=== PATIENT | female | born 1940 | race Caucasian/White ===

== ENCOUNTER → 2020-10-23 12:15 | Outpatient (CLI) | payer MEDICARE, BC, SELFPAY ==
[2020-10-12 10:07] VITALS: BMI 27.2
--- NOTE | 2020-10-23 12:19 | MRI_ITS ---
STUDY: MRI CERVICAL SPINE WITHOUT CONTRAST REASON FOR EXAM: Female, 80 years old. Disk Bulge TECHNIQUE: Standardized fat and water weighted pulse sequences were obtained in the sagittal and axial planes. COMPARISON: None FINDINGS: Normal foramen magnum and brainstem-cervical cord junction. Normal craniovertebral junction. Normal anterior atlantoaxial articulation. Normal odontoid process. Normal cervical lordosis. Normal vertebral bodies and posterior osseous elements. C2-3: Normal endplates. Normal disc height, signal and morphology. Normal central canal and intervertebral neural foramina. C3-4: Mild broad disc osteophyte complex produces mild spinal stenosis and mild bilateral neural foraminal stenosis. C4-5: Normal endplates. Normal disc height, signal and morphology. Normal central canal and intervertebral neural foramina. C5-6: Mild broad disc osteophyte complex and bilateral uncovertebral hypertrophy produces mild spinal stenosis and mild bilateral neural foraminal stenosis. C6-7: Mild bilobed disc osteophyte complex and bilateral uncovertebral hypertrophy produces mild spinal stenosis and mild bilateral neural foraminal stenosis. C7-T1: Normal endplates. Normal disc height, signal and morphology. Normal central canal and intervertebral neural foramina. Normal cervical cord. Normal visualized soft tissue structures. MRI/Spine Cervical (Routine) IMPRESSION: Multilevel degenerative changes, as described above. Electronically Signed: Cecil Cole MD at 15:19 EDT Tel , Service support ,
--- NOTE | 2020-10-23 12:19 | MRI_ITS ---
STUDY: MRI BRAIN WITHOUT CONTRAST REASON FOR EXAM: Female, 80 years old. Cerebellar Ataxia -- Non-contrast only d/t 51 GFR per TECHNIQUE: Standardized multiplanar fat and water weighted pulse sequences were obtained. COMPARISON: None. FINDINGS: Normal size of the ventricles and extra-axial spaces for the patient''s age. Normal white matter tracts of the supratentorial brain. There is no evidence for recent intracranial ischemia or other cause of cytotoxic edema on diffusion weighted imaging (DWI). Normal T2* images of the brain without demonstrated susceptibility artifact. There is no demonstrated hemosiderin stain. Normal bilateral basal ganglia. Normal thalami. There is no extra-axial fluid accumulation. Normal flow voids within the major intracranial circulation suggesting patency by spin echo criteria. Normal sella turcica, pituitary gland, infundibular stalk, optic chiasm and hypothalamus. Normal tectal plate and pineal gland. Normal midbrain, phoenix and medulla. Normal cerebellum. Normal basal cisterns. Normal bilateral temporal bones. Normal bilateral internal auditory canals. There are bilateral ocular lens implants with otherwise normal intraorbital contents. Normal visualized paranasal sinuses. Normal calvarium and skull base. Normal visualized soft tissue structures. Normal visualized upper cervical spine. MRI/Brain without Contrast IMPRESSION: Normal unenhanced MRI of the brain. Electronically Signed: Cecil Cole MD at 15:16 EDT Tel , Service support ,
[2020-10-24 11:55] LABS: CREATININE FINGERSTICK 1.1 mg/dL (0.55-1.02)
== END ==
PROVIDERS: PCP Family Medicine; Referring Provider Psychiatry & Neurology Neurology; Visit Provider Psychiatry & Neurology Neurology
DX: M51.26 Other intervertebral disc displacement, lumbar region (principal)
CPT/HCPCS: 70551; 72141

== ENCOUNTER → 2021-02-15 11:06 | Outpatient (CLI) | payer MEDICARE, BC, SELFPAY ==
[2020-10-12 10:07] VITALS: BMI 27.2
[2021-02-15 12:41] LABS: Vitamin D,25 Hydroxy 37.1 ng/mL
== END ==
PROVIDERS: PCP Family Medicine; Referring Provider Family Medicine; Visit Provider Family Medicine
DX: E55.9 Vitamin D deficiency, unspecified (principal)
CPT/HCPCS: 36415; 82306

== ENCOUNTER → 2021-03-17 15:17 | Outpatient (CLI) | payer MEDICARE, BC, SELFPAY ==
[2020-10-12 10:07] VITALS: BMI 27.2
--- NOTE | 2021-03-17 15:19 | BI_ITS ---
MAMMOGRAPHY - BILATERAL SCREENING REASON FOR EXAM: Female, 80 years old. Routine annual screening examination. PERTINENT HISTORY: Non-contributory. TECHNIQUE: Digital bilateral breast sarah (3D mammographic acquisition) in the CC and MLO projections. 2-D mediolateral oblique (MLO) and craniocaudad (CC) views of both breasts were obtained. CAD: Full Field Digital Mammography with Computer Added Detection was performed. COMPARISON: Comparison is made with prior examination of 09/06/2019. FINDINGS: Breast Composition: The breasts are almost entirely fatty. There are no dominant masses or suspicious calcifications. There is a 5.4 mm well-defined nodule in the axillary region of the left breast suggestive of a small lymph node. This is unchanged. No other significant abnormalities are identified. There has been no significant change since the prior study. BI/SCRN MAMM (CAD)W/SARAH BILAT IMPRESSION: Stable bilateral screening mammogram. Yearly follow-up mammogram recommended. (A) ASSESSMENT CATEGORY: BIRADS Category 2: Benign. A letter regarding these results will be sent to the patient by the facility within 30 days. Approximately 10% of breast cancers are not detected by mammography. A normal mammogram should not delay biopsy of a clinically suspicious abnormality. [id number] Electronically Signed: Tristin Hardwick MD at 15:29 EDT , Service support ,
== END ==
PROVIDERS: PCP Family Medicine; Referring Provider Family Medicine; Visit Provider Family Medicine
DX: Z12.31 Encounter for screening mammogram for malignant neoplasm of breast (principal)
CPT/HCPCS: 77063; 77067

== ENCOUNTER → 2021-06-18 10:58 | Outpatient (CLI) | payer MEDICARE, BC, SELFPAY ==
[2021-06-18 12:47] LABS: CPK Total, Creatine Kinase 41 U/L (26-192); CRP < 2.90 mg/L (0.0-3.0)
== END ==
PROVIDERS: PCP Family Medicine; Referring Provider Family Medicine; Visit Provider Family Medicine
DX: E78.00 Pure hypercholesterolemia, unspecified (principal); G11.9 Hereditary ataxia, unspecified; Z78.9 Other specified health status
CPT/HCPCS: 36415; 82550; 86140

== ENCOUNTER 2021-08-20 12:05 | Outpatient (CLI) | payer MEDICARE, BC, SELFPAY ==
--- NOTE | 2021-08-20 12:08 | RAD_ITS ---
STUDY: X-RAY - PELVIS AND RIGHT HIP REASON FOR EXAM: Female, 81 years old. GLUTEAL PAIN TECHNIQUE: 3 views of the pelvis and hip. COMPARISON: None. FINDINGS: There is a non-specific bowel gas pattern. Normal visualized soft tissue structures. Normal bilateral iliac wings, sacroiliac joints and visualized sacrum. Normal bilateral superior and inferior pubic rami. Normal pubic symphysis. Normal bilateral ischial tuberosities. There is evidence of prior hardware removal of the proximal right femur with extension to the neck of the femur. Findings suggestive of a healed right subcapital fracture. Sclerosis of the femoral head. Avascular necrosis should be ruled out. Normal acetabulum. There is moderate articular joint space narrowing of the hip. Disc space narrowing and degeneration in the lower lumbar spine. RAD/HIP, UNI W/ Pelvis 2-3 Views IMPRESSION: Evidence of prior ORIF of a right subcapital fracture. 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 Electronically Signed: Tristin Hardwick MD at 12:34 EST ,
== END 2021-08-20 23:59 | disposition home or self-care (01) ==
LOC: MTRAD 12:06
PROVIDERS: PCP Family Medicine; Referring Provider Family Medicine; Visit Provider Family Medicine
DX: M79.18 Myalgia, other site (principal)
CPT/HCPCS: 73502

== ENCOUNTER 2021-09-03 13:04 | Outpatient (CLI) | payer MEDICARE, BC, SELFPAY ==
--- NOTE | 2021-09-03 13:07 | CT_ITS ---
CT of the right hip without contrast INDICATION: Fall, hip pain. COMPARISON: X-ray 08/20/2021 TECHNIQUE: Multiple thin section axial CT images the right hip joint were obtained without the administration of intravenous contrast and filmed in soft tissue and bone windows. Furthermore, multiple sagittal and coronal reconstructions were performed. Dose limiting techniques were utilized. FINDINGS: No abnormal soft tissue mass, lymphadenopathy, fluid collection. No acute fracture or dislocation. There is a healed fracture of the subcapital femoral neck with a hyperdense of prior percutaneous fixation with tracts from 3 screws. There is inferior displacement of the femoral head on the neck consistent with some inferior slippage of the femoral head. There is moderate joint space narrowing, subchondral sclerosis, and subchondral cyst formation of the superior femoral head and the roof the acetabulum hip joint consistent with moderate arthrosis. This produces concavity the superior surface of the femoral head and avascular necrosis is felt to be less likely. IMPRESSION: Healed inferiorly displaced fracture of the subcapital femoral neck with removal of percutaneous fixation screws and moderate hip arthrosis. Electronically Signed: Cecil Cole MD at 8:45 EST , CT/Extremity Lower without Contra
== END 2021-09-03 23:59 | disposition home or self-care (01) ==
LOC: CT 13:05
PROVIDERS: PCP Family Medicine; Referring Provider Family Medicine; Visit Provider Family Medicine
DX: M87.051 Idiopathic aseptic necrosis of right femur (principal)
CPT/HCPCS: 73700

== ENCOUNTER 2022-02-17 06:36 | Day surgery (SDC) | payer MEDICARE, BC, SELFPAY ==
[2022-02-17] VITALS (7 sets, daily range): BP systolic 113–151; BP diastolic 67–73; PULSE 60–65; RESP 16–18; TEMP 36.2–36.6; O2SAT 96–98; BMI 28.8
[2022-02-17] MEDS: Lactated Ringers 1,000 ML 15 ML IV (06:50)
--- NOTE | 2022-02-17 07:05 | PCM.HP.BLA ---
History and Physical Date of Admission: 02/17/22 TERRENCE YANG, is an 81 F who presents to the office today for increasing regurgitation of food after eating.? She has cerebellar ataxia.? She is referred by her primary care physician who suspects esophageal dysmotility.? The patient states she does not have difficulty with swallowing, rather the problem is that she is having regurgitation of food, less often regurgitation of acid.? She takes domperidone 10 mg at suppertime to help with reflux, she does find it helpful; she takes a second dose in the evening if needed.? She reports she has gone through speech therapy.? She has not had a swallowing study or EGD.? Food and pills are not getting stuck.? She will have coughing along with the regurgitation.? No sore throat, chest pain or abdominal pain.? No nausea or vomiting.? She reports the bowels are fine, she denies any issues with diarrhea or constipation.? No melena or hematochezia.? Weight is stable.? Appetite is fine.? No early satiety. Cerebellar ataxia began in 1989.? She is able to self propel in a wheelchair.? She resides at [facility]. ROS Const Constitutional: No fatigue ENT ENT: Positive for difficulty swallowing Gastro GI: Positive for abdominal pain and difficulty swallowing; No belching, bloating, change in bowel habits, change in stool character, coffee ground emesis, constipation, cramping, diarrhea, heartburn, feeling full early, excessive flatus, incontinent of stools, Vomiting blood/hematemesis, Blood in stool, loose stools, Black,tarry stools, nausea/dyspepsia, pain with swallowing, vomiting or other Musc Musculoskeletal: Positive for abnormal gait, limited range of motion, muscle weakness and decreased muscle mass; No joint pain Skin Skin: No yellowing of the eye or itchy eyes Neuro Neurology: Positive for abnormal gait Psych Psychiatric: No anxiety and No depression Endo Endocrine: No fatigue Aller/Imm Allergy/Immunologic: No itchy eyes Kirk/Lymp Hematologic/Lymphatic: No easy bleeding or easy bruising Exam Const General: cooperative, comfortable and no acute distress Orientation: alert, awake and oriented x3 Other: In wheelchair, able to self propel Resp Effort & Inspection: normal respiratory effort GI Inspection: normal to inspection Palpation: tender Quality Reporting Tobacco Screening ([facility] 138) Smoking Status: Never smoker Assessment and Plan Assessment and Plan (1) Regurgitation of food: ?Status:?Acute ?Plan: 81-year-old female with regurgitation of food along with coughing in the setting of cerebellar ataxia.? Case discussed with Dr. Galvan.? We will order a video swallowing exam that will be performed by speech therapy.? She will be scheduled for EGD to evaluate for stricture or other easily treatable cause of her regurgitation.? We can consider esophageal manometry later if needed.? We will have patient follow-up with Dr. Galvan per patient preference 2 weeks after EGD to discuss results and possible treatment options. (2) Cerebellar ataxia: ?Status:?Acute ? ? ? Orders: Referrals Speech Therapy ? G11.9 - Hereditary ataxia, unspecified, R11.10 - Vomiting, unspecified ? I have re-examined the patient. There are no clinical changes since date of exam.
--- NOTE | 2022-02-17 07:45 | EGD_PTH ---
PATIENT: TERRENCE YANG LOC: EN U#:[id number] AGE/SX: 81/F ROOM: RE02/17/[address]: Dr. Kobe Galvan DO : 1940 BED: DIS: 02/17/2022 SPEC #: [id number] RECD: 02/17/22 10:26 STATUS: FABBY CAIO #: [id number] CORNEL: 02/17/22 07:[address]: Kobe Galvan DEPT: SURGICAL PATHOLOGY RECD BY: Cara Herrera ENTERED: 02/17/22 12:10 SP TYPE: EGD BIOPSY SARINA DR: Dr. Terry Laguna MD Tissues: A - Esophagus, NOS B - Esophagus, NOS Procedures: Surgery Specimen Level IV HEADER OPERATION: EGD ([facility]), with biopsies PRE-OP DIAGNOSIS: Regurgitation of food TISSUE SUBMITTED: A. Distal esophagus biopsy, B. Random esophagus biopsy MICROSCOPIC DIAGNOSIS A. Distal esophagus biopsy: Fragments of gastroesophageal mucosa with chronic inflammation. Intestinal metaplasia (goblet cell metaplasia) not identified. See comment. B. Random esophagus biopsy: Fragments of gastroesophageal mucosa with mild chronic inflammation. Intestinal metaplasia (goblet cell metaplasia) not identified. See comment COMMENT A & B. Alcian blue/PAS stain with matched control supports the above diagnosis. B. The specimen predominantly consists of squamous mucosa. MICROSCOPIC DESCRIPTION Slides are reviewed. GROSS DESCRIPTION A. Received is one container labeled with the patient name and designated distal esophagus. The specimen consists of multiple irregular fragments of light eli soft tissue that in aggregate measure 1.0 x 0.3 x 0.1 cm. The specimen is totally submitted in one cassette. B. Received is one container labeled with the patient name and designated random esophagus. The specimen consists of two irregular fragments of light eli soft tissue that in aggregate measure 0.4 x 0.2 x 0.1 cm. The specimen is totally submitted in one cassette. /SJ:concepción 02/17/22 TC:3 CPT:60614 x2, 41353 x2
--- NOTE | 2022-02-17 08:01 | OP.EGD_ITS ---
Patient Name: Juliane Mahan Procedure Date: 02/17/2022 7:37 AM Date of : 1940 Age: 81 Procedure: Upper GI endoscopy Indications: Dyspepsia, Indigestion, Suspected esophageal reflux Providers: Kobe Galvan DO Medicines: Monitored Anesthesia Care Patient Profile: This is an 81 year old female. Refer to note in patient chart for documentation of history and physical. Patient has symptoms of chronic regurgitation. Complications: No immediate complications. Procedure: Pre-Anesthesia Assessment: - Prior to the procedure, a History and Physical was performed, and patient medications and allergies were reviewed. The patient is competent. The risks and benefits of the procedure and the sedation options and risks were discussed with the patient. All questions were answered and informed consent was obtained. Patient identification and proposed procedure were verified by the physician in the pre-procedure area. Mental Status Examination: alert and oriented. Airway Examination: normal oropharyngeal airway and neck mobility. Respiratory Examination: clear to auscultation. CV Examination: normal. Prophylactic Antibiotics: The patient does not require prophylactic antibiotics. Prior Anticoagulants: The patient has taken no previous anticoagulant or antiplatelet agents. ASA Grade Assessment: II - A patient with mild systemic disease. After reviewing the risks and benefits, the patient was deemed in satisfactory condition to undergo the procedure. The anesthesia plan was to use moderate sedation / analgesia (conscious sedation). Immediately prior to administration of medications, the patient was re-assessed for adequacy to receive sedatives. The heart rate, respiratory rate, oxygen saturations, blood pressure, adequacy of pulmonary ventilation, and response to care were monitored throughout the procedure. The physical status of the patient was re-assessed after the procedure. After obtaining informed consent, the endoscope was passed under direct vision. Throughout the procedure, the patient's blood pressure, pulse, and oxygen saturations were monitored continuously. The gastroscope was introduced through the mouth, and advanced to the third part of duodenum. The upper GI endoscopy was accomplished without difficulty. The patient tolerated the procedure well. Scope In: 7:48:08 AM Scope Out: 7:52:56 AM Total Procedure Duration Time 0 hours 4 minutes 48 seconds Findings: A moderate Schatzki ring was found in the lower third of the esophagus. A guidewire was placed and the scope was withdrawn. Dilation was performed with a Savary dilator with no resistance at 45 Fr. The dilation site was examined and showed moderate improvement in luminal narrowing. Biopsies were obtained from the proximal and distal esophagus with cold forceps for histology of suspected eosinophilic esophagitis. The Z-line was irregular and was found 40 cm from the incisors. Biopsies were taken with a cold forceps for histology. Verification of patient identification for the specimen was done. Estimated blood loss was minimal. A medium-sized hiatal hernia was present. The second portion of the duodenum was normal. Impression: - Moderate Schatzki ring. Dilated. Biopsied. - Z-line irregular, 40 cm from the incisors. Biopsied. - Medium-sized hiatal hernia. - Normal second portion of the duodenum. Recommendation: - Discharge patient to home. - Resume previous diet. - Continue present medications. - Await pathology results. Procedure Code(s): --- Professional --- 00192, Esophagogastroduodenoscopy, flexible, transoral; with insertion of guide wire followed by passage of dilator(s) through esophagus over guide wire 17333, 59,51, Esophagogastroduodenoscopy, flexible, transoral; with biopsy, single or multiple CPT copyright 2017 [employer]. All rights reserved. The codes documented in this report are preliminary and upon tree surgeon helper review may be revised to meet current compliance requirements. Kobe Galvan DO 02/17/2022 8:00:25 AM This report has been signed electronically. Number of Addenda: 1 Note Initiated On: 02/17/2022 7:37 AM Addendum Number: 1 Addendum Date: 04/07/2022 6:13:47 AM MAC was used as sedation for this procedure. Kobe Galvan DO 04/07/2022 6:13:50 AM This report has been signed electronically.
--- NOTE | 2022-02-17 08:02 | OP.CCLET_ITS ---
04/07/2022 Terry aLguna [address] [place] [address] Re : Upper GI endoscopy procedure for Juliane Mahan Dear Dr. Laguna This procedure was performed on January. My impressions and recommendations are as follows: Impressions : - Moderate Schatzki ring. Dilated. Biopsied. - Z-line irregular, 40 cm from the incisors. Biopsied. - Medium-sized hiatal hernia. - Normal second portion of the duodenum. Recommendations : - Discharge patient to home. - Resume previous diet. - Continue present medications. - Await pathology results. My findings are described in the full procedure note, which is enclosed. If I can be of further assistance, please feel free to contact me at . Sincerely, Kobe Galvan, 02/17/2022 8:00:25 AM This report has been signed electronically.
== END 2022-02-17 08:51 | disposition home or self-care (01) ==
LOC: EN 06:38 → AC 06:38
PROVIDERS: PCP Family Medicine; Referring Provider Family Medicine; Visit Provider Internal Medicine Gastroenterology
PROC: 0DJ08ZZ Inspection of Upper Intestinal Tract, Via Natural or Artificial Opening Endoscopic (ICD-10-PCS; CPT 43235; principal; 2022-02-17 07:40)
DX: K44.9 Diaphragmatic hernia without obstruction or gangrene (principal); G11.9 Hereditary ataxia, unspecified; K30 Functional dyspepsia; K22.2 Esophageal obstruction; Z79.82 Long term (current) use of aspirin; Z79.899 Other long term (current) drug therapy; R11.10 Vomiting, unspecified; J45.909 Unspecified asthma, uncomplicated; M47.812 Spondylosis without myelopathy or radiculopathy, cervical region; K21.9 Gastro-esophageal reflux disease without esophagitis; E78.5 Hyperlipidemia, unspecified; I10 Essential (primary) hypertension; E55.9 Vitamin D deficiency, unspecified
CPT/HCPCS: 43239; 43248; 88305; J7120; J2405

== ENCOUNTER → 2022-03-16 | Outpatient (CLI) | payer MEDICARE, BC, SELFPAY ==
--- NOTE | 2022-03-16 09:47 | RAD_ITS ---
STUDY: X-RAY - ESOPHAGUS (BARIUM SWALLOW) WITH FLUOROSCOPY REASON FOR EXAM: Female, 81 years old. Regurgitation TECHNIQUE: 24 view(s) of the esophagus were obtained following swallowing of barium. FLUOROSCOPY TIME (if supplied): (48 seconds) minutes/seconds COMPARISON: None. FINDINGS: There is no demonstrated esophageal foreign body. There is no demonstrated stricture or mucosal abnormality. Normal gastroesophageal junction, without a demonstrated hiatal hernia. The patient ingested a 12 mm tablet of barium without any difficulty. There is atherosclerotic calcification of the aortic arch with tortuosity of the descending aorta. Normal visualized pulmonary parenchyma. There are diffuse degenerative changes of the visualized thoracic spine. RAD/Esophagus Single Contrast IMPRESSION: Normal plain film x-ray examination (barium swallow) of the esophagus. Electronically Signed: Tristin Hardwick MD at 10:43 EDT ,
== END | disposition home or self-care (01) ==
LOC: RAD 09:22
PROVIDERS: PCP Family Medicine; Referring Provider Internal Medicine Gastroenterology; Visit Provider Internal Medicine Gastroenterology
DX: R11.10 Vomiting, unspecified (principal)
CPT/HCPCS: 74220

== ENCOUNTER → 2022-04-20 | Outpatient (CLI) | payer MEDICARE, BC, SELFPAY ==
--- NOTE | 2022-04-20 09:47 | BI_ITS ---
MAMMOGRAPHY - BILATERAL SCREENING 3-D TOMOSYNTHESIS REASON FOR EXAM: Female, 81 years old. Routine screening PERTINENT HISTORY: No significant family history. TECHNIQUE: 2-D mammograms and 3-D Tomosynthesis of the breast (s) were performed. CAD was performed. COMPARISON: 03/17/2021 FINDINGS: The breast composition is almost entirely fat. Scattered benign calcifications are seen. No dense spiculated masses or suspicious microcalcifications are identified. No architectural distortion is identified. There is no skin thickening or retraction. There has been no significant change since the prior study. BI/SCRN MAMM (CAD)W/SARAH BILAT IMPRESSION: No mammographic signs of malignancy. Routine yearly mammograms recommended. ASSESSMENT CATEGORY: BIRADS Category 1: Negative. A letter regarding these results will be sent to the patient by the facility within 30 days. FOLLOW UP RECOMMENDATION: Yearly follow up mammogram recommended. (A) Approximately 10% of breast cancers are not detected by mammography. A normal mammogram should not delay biopsy of a clinically suspicious abnormality. Electronically Signed: Roel Philippe MD at 10:31 EDT ,
== END | disposition home or self-care (01) ==
LOC: OPBI 09:46
PROVIDERS: PCP Family Medicine; Visit Provider Family Medicine
DX: Z12.31 Encounter for screening mammogram for malignant neoplasm of breast (principal)
CPT/HCPCS: 77063; 77067

== ENCOUNTER 2022-11-02 08:00 | Day surgery (SDC) | payer MEDICARE, BC, SELFPAY ==
[2022-11-02] VITALS (7 sets, daily range): BP systolic 90–148; BP diastolic 41–75; PULSE 67–71; RESP 14–18; TEMP 36.3–36.6; O2SAT 96–98; BMI 28.2
[2022-11-02] MEDS: Lactated Ringers 1,000 ML 15 ML IV (08:32)
--- NOTE | 2022-11-02 09:03 | HP.PCM_ITS ---
History and Physical Date of Admission: 11/02/22 TERRENCE YANG, is a 82 F who presents to the office today for Follow up. PMH cerebellar ataxia, onset 1989. Colonoscopy 12.22.18 Dr. Carpenter noting 8mm sessile polyp; addition three polyps removed; diverticulosis; internal hemorrhoids. Two polyps were TA. *BGI established 7..22 with referral from PCP for postprandial regurgitation of food. No swallow studies or EGD and no difficulty of dysphagia. Reflux managed with domperidone 10mg QD. EGD 02.17.22?moderate Schatzki ring, Savary dilator 45F; Irregular Zline 40cm from incisors with inflammation, without metaplasia; medium hiatal hernia. OV 9.. with continued regurgitation of food, particularly with increased abdominal pressure. No dysphagia. Barium Swallow 03.16.22?without abnormality. OV 08.24.22 continued to have regurgitation of food with increased abdominal pressure, feels the food is not digested when it does come up. ROS Const Constitutional: No fatigue ENT ENT: Positive for difficulty swallowing Gastro GI: Positive for abdominal pain and difficulty swallowing; No belching, bloating, change in bowel habits, change in stool character, coffee ground emesis, constipation, cramping, diarrhea, heartburn, feeling full early, excessive flatus, incontinent of stools, Vomiting blood/hematemesis, Blood in stool, loose stools, Black,tarry stools, nausea/dyspepsia, pain with swallowing, vomiting or other Musc Musculoskeletal: Positive for abnormal gait, limited range of motion, muscle weakness and decreased muscle mass; No joint pain Skin Skin: No yellowing of the eye or itchy eyes Neuro Neurology: Positive for abnormal gait Psych Psychiatric: No anxiety and No depression Endo Endocrine: No fatigue Aller/Imm Allergy/Immunologic: No itchy eyes Kirk/Lymp Hematologic/Lymphatic: No easy bleeding or easy bruising Exam Const General: cooperative, comfortable and no acute distress Orientation: alert, awake and oriented x3 Other: In wheelchair, able to self propel Resp Effort & Inspection: normal respiratory effort GI Inspection: normal to inspection Palpation: tender Quality Reporting Tobacco Screening ([facility] 138) Smoking Status: Never smoker Assessment and Plan Assessment and Plan (1) Regurgitation of food: ?Status:?Chronic ?Plan: Chronic regurgitation of food secondary to known gastroparesis.? She also has a hiatal hernia.? She is taken domperidone 10 mg p.o. every 6 hours as needed.? I will give her a refill for the medicine. (2) Personal history of colonic polyps: ?Status:?Acute ?Plan: We will set up a surveillance colonoscopy for her.? She was explained alternatives, risk, benefits including outstanding bleeding, infection, sepsis, perforation, need for emergent surgery.? She will have an ASA 3. (3) Gastric reflux: ?Status:?Acute ?Plan: Gastroesophageal reflux disease is made worse secondary to underlying gastroparesis.? There was no signs of José's esophagus on her upper endoscopy which is good.? She does not need PPI therapy on a daily basis.? We will give her H2 receptor antonio. ? ? ? Orders: Orders Gastric Emptying Study Today R11.10 - Vomiting, unspecified ? (4) need for surveillance colonoscopy. She was explained alternatives, risk, benefits include not withstanding bleeding, infection, sepsis, perforation, need for emergent and . She will have a colonoscopy and her ASA will be 3. Coding
--- NOTE | 2022-11-02 09:34 | OP.COLON_ITS ---
Patient Name: Juliane Mahan Procedure Date: 11/02/2022 9:08 AM Date of : 1940 Age: 82 Procedure: Colonoscopy Indications: Screening for colorectal malignant neoplasm Providers: Kobe Galvan DO Referring MD: Kobe Galvan DO Medicines: Monitored Anesthesia Care Patient Profile: This is an 82 year old female. Refer to note in patient chart for documentation of history and physical. Last Colonoscopy: date unknown. Unable to locate last colonoscopy report. Complications: No immediate complications. Procedure: Pre-Anesthesia Assessment: - Prior to the procedure, a History and Physical was performed, and patient medications and allergies were reviewed. The risks and benefits of the procedure and the sedation options and risks were discussed with the patient. All questions were answered and informed consent was obtained. Patient identification and proposed procedure were verified by the physician. Mental Status Examination: normal. Prophylactic Antibiotics: The patient does not require prophylactic antibiotics. Prior Anticoagulants: The patient has taken no previous anticoagulant or antiplatelet agents. ASA Grade Assessment: II - A patient with mild systemic disease. After reviewing the risks and benefits, the patient was deemed in satisfactory condition to undergo the procedure. The anesthesia plan was to use monitored anesthesia care (MAC). Immediately prior to administration of medications, the patient was re-assessed for adequacy to receive sedatives. The heart rate, respiratory rate, oxygen saturations, blood pressure, adequacy of pulmonary ventilation, and response to care were monitored throughout the procedure. The physical status of the patient was re-assessed after the procedure. After I obtained informed consent, the scope was passed under direct vision. Throughout the procedure, the patient's blood pressure, pulse, and oxygen saturations were monitored continuously. The pediatric colonoscope was introduced through the anus and advanced to the cecum, identified by appendiceal orifice and ileocecal valve. The colonoscopy was performed without difficulty. The patient tolerated the procedure well. The quality of the bowel preparation was good. Scope In: 9:19:02 AM Scope Withdrawal Time 0 hours 7 minutes 59 seconds Scope Out: 9:29:53 AM Total Procedure Duration Time 0 hours 10 minutes 51 seconds Findings: The perianal and digital rectal examinations were normal. A few small-mouthed diverticula were found in the recto-sigmoid colon. The exam was otherwise without abnormality on direct and retroflexion views. Impression: - Diverticulosis in the recto-sigmoid colon. - The examination was otherwise normal on direct and retroflexion views. - No specimens collected. Recommendation: - Discharge patient to home. - Resume previous diet. - Continue present medications. - Repeat colonoscopy in 5 years for surveillance. Procedure Code(s): --- Professional --- G0121, Colorectal cancer screening; colonoscopy on individual not meeting criteria for high risk CPT copyright 2017 [employer]. All rights reserved. The codes documented in this report are preliminary and upon accounting consultant review may be revised to meet current compliance requirements. Kobe Galvan DO 11/02/2022 9:33:56 AM This report has been signed electronically. Number of Addenda: 0 Note Initiated On: 11/02/2022 9:08 AM
--- NOTE | 2022-11-02 09:35 | OP.CCLET_ITS ---
11/02/2022 Terry Laguna [address] [place] [address] Re : Colonoscopy procedure for Juliane Mahan Dear Dr. Laguna This procedure was performed on Wednesday, November 02, 2022. My impressions and recommendations are as follows: Impressions : - Diverticulosis in the recto-sigmoid colon. - The examination was otherwise normal on direct and retroflexion views. - No specimens collected. Recommendations : - Discharge patient to home. - Resume previous diet. - Continue present medications. - Repeat colonoscopy in 5 years for surveillance. My findings are described in the full procedure note, which is enclosed. If I can be of further assistance, please feel free to contact me at . Sincerely, Kobe Galvan, 11/02/2022 9:33:56 AM This report has been signed electronically.
== END 2022-11-02 10:20 | disposition home or self-care (01) ==
LOC: EN 08:02 → AC 08:03
PROVIDERS: PCP Family Medicine; Referring Provider Family Medicine; Visit Provider Internal Medicine Gastroenterology
PROC: 0DJD8ZZ Inspection of Lower Intestinal Tract, Via Natural or Artificial Opening Endoscopic (ICD-10-PCS; CPT 45378; principal; 2022-11-02 08:55)
DX: Z12.11 Encounter for screening for malignant neoplasm of colon (principal); K57.30 Diverticulosis of large intestine without perforation or abscess without bleeding; J45.909 Unspecified asthma, uncomplicated; K21.9 Gastro-esophageal reflux disease without esophagitis; K31.84 Gastroparesis; E78.00 Pure hypercholesterolemia, unspecified; I10 Essential (primary) hypertension; Z79.82 Long term (current) use of aspirin; Z79.899 Other long term (current) drug therapy; Z86.010 Personal history of colon polyps
CPT/HCPCS: G0121; J7120; J2405

== ENCOUNTER → 2023-03-14 | Outpatient (CLI) | payer MEDICARE, BC, SELFPAY ==
--- NOTE | 2023-03-14 16:05 | RAD_ITS ---
STUDY: X-RAY - LEFT HAND REASON FOR EXAM: Female, 82 years old. L hand MCP tender/swollen TECHNIQUE: 3 view(s) of the hand. COMPARISON: None. FINDINGS: Normal radiocarpal articulation. Normal distal radioulnar joint. Normal visualized carpal bones. Normal carpal articulations Normal carpometacarpal articulation of the thumb. Normal second through fifth carpometacarpal joints. Normal metacarpi. Normal metacarpophalangeal joint of the thumb. Normal interphalangeal joint of the thumb. Normal proximal and distal phalanges of the thumb. Normal metacarpophalangeal joints of the second through fifth fingers. Normal proximal and distal interphalangeal joints of the second through fifth fingers. Normal phalanges of the second through fifth fingers. The soft tissue structures are unremarkable. RAD/Hand Min 3 Views IMPRESSION: No definite acute or significant abnormality seen. Electronically Signed: Owen Linton MD at 19:59 EDT ,
--- NOTE | 2023-03-14 16:05 | RAD_ITS ---
STUDY: X-RAY - PELVIS AND RIGHT HIP REASON FOR EXAM: Female, 82 years old. anterior R hip pain TECHNIQUE: 3 views of the pelvis and hip. COMPARISON: 08/20/2021. FINDINGS: Stable appearance of postsurgical changes of the proximal right femur. Stable appearance of markedly abnormal femoral head contour and shortening of the right femoral neck related to previous fracture and prominent secondary osteoarthritis. No gross acute abnormality. Normal bilateral iliac wings, sacroiliac joints and visualized sacrum. Normal bilateral superior and inferior pubic rami. Normal pubic symphysis. Normal bilateral ischial tuberosities. RAD/HIP, UNI W/ Pelvis 2-3 Views IMPRESSION: No change or acute abnormality. Postsurgical and degenerative changes of the right hip. Electronically Signed: Owen Linton MD at 19:16 EDT ,
[2023-03-14 17:51] LABS: Erythrocyte Sedimentation Rate 9 mm/hr (0-30)
[2023-03-14 17:55] LABS: Absolute Lymphocyte Count 2.34 X10^3/uL (0.83-4.51); Absolute Neutrophil Count 3.5 X10^3/uL (2.0-7.7); Basophil# 0.06 X10^3/uL; Basophil% 0.9 % (0-1); Eosinophil# 0.24 X10^3/uL; Eosinophils% 3.6 % (0-5); Hematocrit 47.9 % (37-47); Hemoglobin 15.1 g/dL (12.0-15.0); Lymphocyte # 2.34 X10^3/ul (0.83-4.51); Lymphocyte % 34.7 % (19-41); Mean Corp Hgb Conc 31.5 g/dL (32-36); Mean Corpuscular Volume 95.2 fL (81-99); Mean Platelet Vol. 9.9 fl (6.2-12.0); Monocyte# 0.65 X10^3/uL; Monocyte% 9.6 % (0-10); NRBC Flagged by Analyzer 0 % (0-5); Neutrophil # 3.45 X10^3/uL (2.7-7.7); Neutrophil % 51.1 % (47-70); Platelet Count 220 K/mm3 (150-450); RBC Distribution Width CV 13.2 % (11.6-14.6); RBC Distribution Width SD 46.1 fl (35.1-43.9); Red Blood Count 5.03 M/mm3 (4.2-5.4); White Blood Count 6.8 K/mm3 (4.4-11.0)
[2023-03-14 18:43] LABS: CRP < 2.90 mg/L (0.0-3.0); Rheumatoid Factor < 10.0 IU/mL (<15)
[2023-03-16 12:09] LABS: ANTINUCLEAR ANTIBODIES DIRECT Negative (Negative)
== END | disposition home or self-care (01) ==
LOC: MTLAB 16:02
PROVIDERS: PCP Family Medicine; Visit Provider Family Medicine
DX: M19.049 Primary osteoarthritis, unspecified hand (principal); J45.909 Unspecified asthma, uncomplicated
CPT/HCPCS: 36415; 73130; 73502; 85025; 85652; 86038; 86140; 86431

== ENCOUNTER 2023-11-14 11:05 | Day surgery (SDC) | payer MEDICARE, BC, SELFPAY ==
[2023-11-14] VITALS (8 sets, daily range): BP systolic 79–138; BP diastolic 44–75; PULSE 55–63; RESP 12–18; TEMP 35.6–36.5; O2SAT 92–98; BMI 27.9
[2023-11-14] MEDS: Lactated Ringers 1,000 ML 15 ML IV (11:37)
--- NOTE | 2023-11-14 11:59 | HP.PCM_ITS ---
History and Physical Date of Admission: 11/14/23 TERRENCE YANG, is a 83 F who presents to the office today for follow up. PMH cerebellar ataxia, onset 1989. Gastroparesis diagnosed by previous GI who started domperidone which is effective. Colonoscopy 12.22.18 Dr. Carpenter noting 8mm sessile polyp; addition three polyps removed; diverticulosis; internal hemorrhoids. Two polyps were TA. *BGI established 7.12.22 with referral from PCP for postprandial regurgitation of food. No swallow studies or EGD and no difficulty of dysphagia. Reflux managed with domperidone 10mg QD. EGD 02.17.22 moderate Schatzki ring, Savary dilator 45F; Irregular Zline 40cm from incisors with inflammation, without metaplasia; medium hiatal hernia. OV 03.11.22 with continued regurgitation of food, particularly with increased abdominal pressure. No dysphagia. Barium Swallow 03.16.22 without abnormality. OV 08.24. continues to have regurgitation of food with increased abdominal pres sure, feels the food is not digested when it does come up. ? Colonoscopy 11.02.22 Colonoscopy diverticulosis. Remaining exam without pertinent abnormality. OV 11.23.23 feels she is doing well at this time; though she has been having a random nonproductive cough without choking, dysphagia, trigger, not triggered by PO intake. Mentioned to Dr. Laguna who looked in her throat and said it was red and gave her Flonase to add to her cetirizine and Montelukast. OV 04.28. reports she is doing very well from a GI perspective. Continues to have a cough; swallowing is without difficulty. OV 11.02. Pt reports that she is doing well overall, she is still having episodes of coughing while she eats. Pt states that she is having at least one loose bm per day. ROS Const Constitutional: No fatigue, fever(s) or weight change ENT ENT: No difficulty swallowing Gastro GI: No abdominal pain, belching, bloating, change in bowel habits, change in stool character, coffee ground emesis, constipation, cramping, diarrhea, heartburn, difficulty swallowing, feeling full early, excessive flatus, incontinent of stools, Vomiting blood/hematemesis, Blood in stool, loose stools, Black,tarry stools, nausea/dyspepsia, pain with swallowing, vomiting or other Musc Musculoskeletal: No joint pain Skin Skin: No yellowing of the eye or itchy eyes Psych Psychiatric: No anxiety and No depression Endo Endocrine: No fatigue or weight change Aller/Imm Allergy/Immunologic: No itchy eyes Kirk/Lymp Hematologic/Lymphatic: No easy bleeding or easy bruising Exam Const General: cooperative, comfortable and no acute distress Orientation: alert, awake and oriented x3 Other: In wheelchair, able to self propel Resp Effort & Inspection: normal respiratory effort GI Inspection: normal to inspection Palpation: tender Assessment and Plan Assessment and Plan (1) Dyskinesia of esophagus: Status: Chronic (2) Cerebellar ataxia: Status: Chronic (3) Regurgitation of food: Status: Inactive Plan: Chronic regurgitation of food secondary to known gastroparesis. She also has a hiatal hernia. She is taken domperidone 10 mg p.o. every 6 hours as needed. I will give her a refill for the medicine. We will set her up for an EGD with Botox for her gastroparesis. Botox to the pyloric sphincter works very well for pyloric dysfunction and refractory gastroparesis. If this works then she can go off of the domperidone. (4) Cough: Status: Chronic (5) Personal history of colonic polyps: Status: Inactive Plan: She underwent colonoscopy. She was discovered to have diverticular disease. There was no signs of ischemia seen on her colonoscopy. She did have 2 adenomatous polyps removed. She denies heavy bleeding, abdominal pain, diarrhea or any problems after the procedure. I think this will be her last colonoscopy because she would be 83. We will possibly discuss in the next 3 to 5 years whether she will need a colonoscopy for screening purposes. (6) Gastric reflux: Status: Inactive Plan: Gastroesophageal reflux disease is made worse secondary to underlying jacquelyn roparesis. There was no signs of José's esophagus on her upper endoscopy which is good. She does not need PPI therapy on a daily basis. We will give her H2 receptor antonio. I have examined the patient and the H&P has been reviewed. There are no clinical changes since date of exam.
[2023-11-14] MEDS: 0.9% Normal Saline (Pres. free 10 ML Vial (12:31)
[2023-11-14] MEDS: Botulinum Toxin A 100 Units Vial IJ (12:31)
[2023-11-14] MEDS: 0.9% Saline Lock 10 ML Syringe IV (12:35)
--- NOTE | 2023-11-14 12:50 | OP.CCLET_ITS ---
11/14/2023 eTrry Laguna [address] [place] [address] Re : Upper GI endoscopy procedure for Juliane Mahan Dear Dr. Laguna This procedure was performed on Tuesday, November 14, 2023. My impressions and recommendations are as follows: Impressions : - Abnormal esophageal motility, consistent with presbyesophagus. Injected with botulinum toxin. - No gross lesions in the entire stomach. - No gross lesions in the duodenal bulb. - No specimens collected. Recommendations : - Discharge patient to home. - Resume previous diet. - Continue present medications. My findings are described in the full procedure note, which is enclosed. If I can be of further assistance, please feel free to contact me at . Sincerely, Kobe Galvan, 11/14/2023 12:49:41 PM This report has been signed electronically.
--- NOTE | 2023-11-14 12:50 | OP.EGD_ITS ---
Patient Name: Juliane Mahan Procedure Date: 11/14/2023 12:13 PM Date of : 1940 Age: 83 Procedure: Upper GI endoscopy Indications: Dysphagia Providers: Kobe Galvan DO Medicines: Monitored Anesthesia Care Patient Profile: This is an 83 year old female. Refer to note in patient chart for documentation of history and physical. Patient has symptoms of chronic dysphagia and dysphagia with both liquids and solids. Complications: No immediate complications. Procedure: Pre-Anesthesia Assessment: - Prior to the procedure, a History and Physical was performed, and patient medications and allergies were reviewed. The risks and benefits of the procedure and the sedation options and risks were discussed with the patient. All questions were answered and informed consent was obtained. Patient identification and proposed procedure were verified by the physician in the pre-procedure area. Mental Status Examination: alert and oriented. Airway Examination: normal oropharyngeal airway and neck mobility. Respiratory Examination: clear to auscultation. CV Examination: normal. Prophylactic Antibiotics: The patient does not require prophylactic antibiotics. Prior Anticoagulants: The patient has taken no anticoagulant or antiplatelet agents. ASA Grade Assessment: III - A patient with severe systemic disease. After reviewing the risks and benefits, the patient was deemed in satisfactory condition to undergo the procedure. The anesthesia plan was to use monitored anesthesia care (MAC). Immediately prior to administration of medications, the patient was re-assessed for adequacy to receive sedatives. The heart rate, respiratory rate, oxygen saturations, blood pressure, adequacy of pulmonary ventilation, and response to care were monitored throughout the procedure. The physical status of the patient was re-assessed after the procedure. After obtaining informed consent, the endoscope was passed under direct vision. Throughout the procedure, the patient's blood pressure, pulse, and oxygen saturations were monitored continuously. The Endoscope was introduced through the mouth, and advanced to the second part of duodenum. The upper GI endoscopy was accomplished without difficulty. The patient tolerated the procedure well. Scope In: 12:28:32 PM Scope Out: 12:36:27 PM Total Procedure Duration Time 0 hours 7 minutes 55 seconds Findings: Abnormal motility was noted in the esophagus. The cricopharyngeus was abnormal. There is spasticity of the esophageal body. Tertiary peristaltic waves are noted. Area was successfully injected with 100 units botulinum toxin. No gross lesions were noted in the entire examined stomach. No gross lesions were noted in the duodenal bulb. Impression: - Abnormal esophageal motility, consistent with presbyesophagus. Injected with botulinum toxin. - No gross lesions in the entire stomach. - No gross lesions in the duodenal bulb. - No specimens collected. Recommendation: - Discharge patient to home. - Resume previous diet. - Continue present medications. Procedure Code(s): --- Professional --- 54917, Esophagogastroduodenoscopy, flexible, transoral; with directed submucosal injection(s), any substance CPT copyright 2021 [employer]. All rights reserved. The codes documented in this report are preliminary and upon sheriff's sergeant review may be revised to meet current compliance requirements. Kobe Galvan DO 11/14/2023 12:49:41 PM This report has been signed electronically. Number of Addenda: 0 Note Initiated On: 11/14/2023 12:13 PM
== END 2023-11-14 13:34 | disposition home or self-care (01) ==
LOC: EN 11:12 → AC 11:13
PROVIDERS: PCP Family Medicine; Referring Provider Family Medicine; Visit Provider Internal Medicine Gastroenterology
PROC: 0DJ08ZZ Inspection of Upper Intestinal Tract, Via Natural or Artificial Opening Endoscopic (ICD-10-PCS; CPT 43235; principal; 2023-11-14 11:55)
DX: K22.0 Achalasia of cardia (principal); G11.9 Hereditary ataxia, unspecified; K21.9 Gastro-esophageal reflux disease without esophagitis; K22.89 Other specified disease of esophagus; Z79.82 Long term (current) use of aspirin; J45.909 Unspecified asthma, uncomplicated; I10 Essential (primary) hypertension; Z79.899 Other long term (current) drug therapy; E78.5 Hyperlipidemia, unspecified; K31.84 Gastroparesis; K44.9 Diaphragmatic hernia without obstruction or gangrene; K22.2 Esophageal obstruction
CPT/HCPCS: 43236; J7120; A4216; J0585; J2405; J3490

== ENCOUNTER → 2024-05-16 | Outpatient (CLI) | payer MEDICARE, BC, SELFPAY ==
[2024-05-16 17:49] LABS: Absolute Lymphocyte Count 2.27 X10^3/uL (0.83-4.51); Absolute Neutrophil Count 4.5 X10^3/uL (2.0-7.7); Basophil# 0.08 X10^3/uL; Eosinophil# 0.26 X10^3/uL; Eosinophils% 3.3 % (0-5); Hematocrit 44.5 % (37-47); Hemoglobin 14.5 g/dL (12.0-15.0); Lymphocyte # 2.27 X10^3/ul (0.83-4.51); Mean Corp Hgb Conc 32.6 g/dL (32-36); Mean Corpuscular Hgb 30.1 pg (27.0-32.0); Mean Corpuscular Volume 92.3 fL (81-99); Mean Platelet Vol. 9.6 fl (6.2-12.0); Monocyte# 0.75 X10^3/uL; Monocyte% 9.6 % (0-10); NRBC Flagged by Analyzer 0 % (0-5); Neutrophil # 4.47 X10^3/uL (2.7-7.7); Platelet Count 209 K/mm3 (150-450); RBC Distribution Width CV 13.2 % (11.6-14.6); RBC Distribution Width SD 45.4 fl (35.1-43.9); Red Blood Count 4.82 M/mm3 (4.2-5.4); White Blood Count 7.8 K/mm3 (4.4-11.0)
[2024-05-16 18:12] LABS: Vitamin D,25 Hydroxy 22.4 ng/mL
[2024-05-16 18:19] LABS: ALB/GLOB Ratio 0.9 RATIO (0.9-2.4); AST(SGOT) 18 U/L (15-37); Alanine Aminotransfer ALT/SGPT 26 U/L (13-56); Albumin, Serum 3.2 g/dL (3.2-5.0); Alkaline Phosphatase 84 U/L (45-117); Anion Gap 6 (5-15); BUN 19 mg/dL (7-18); BUN/Creat Ratio 22.2 RATIO (10-20); Calcium,Total 8.4 mg/dL (8.5-10.1); Chloride 111 mmol/L (98-107); Cholesterol 193 mg/dL (200); Creatinine, Serum 0.86 mg/dL (0.55-1.02); EST Glomerular Filtration Rate 68 mL/min (>60); Est Glom Filt Rate - Afr Amer 82 mL/min (>60); Globulin 3.4 g/dL (2.2-4.2); Glucose 141 mg/dL (74-106); High Density Lipoprotein 45 mg/dL; Potassium 3.6 mmol/L (3.5-5.1); Protein, Total 6.6 g/dL (6.4-8.2); Sodium Level 142 mmol/L (136-145)
== END | disposition home or self-care (01) ==
LOC: MFPLAB 16:57
PROVIDERS: PCP Family Medicine; Referring Provider Family Medicine; Visit Provider Family Medicine
DX: G11.9 Hereditary ataxia, unspecified (principal); E78.00 Pure hypercholesterolemia, unspecified; M81.0 Age-related osteoporosis without current pathological fracture
CPT/HCPCS: 36415; 80053; 82306; 82465; 83718; 84443; 85025

== ENCOUNTER → 2024-08-01 | Outpatient (CLI) | payer MEDICARE, BC, SELFPAY ==
--- NOTE | 2024-08-01 14:32 | BD_ITS ---
EXAM: CLINICAL INDICATION: Determine bone density. CLINICAL HISTORY: Screening COMPARISON: 06/09/2015. TECHNIQUE: Bone densitometry of the lumbar spine and hips was performed using the HOLOGIC DEXA scanner. FINDINGS: Bone Density Measurements: SPINE AP Spine (L1-L4): 1.040 g/cm2 T-Score: 0.6 Z-Score: 3.2 WHO Classification: NORMAL LEFT FEMUR Femoral TOTAL (LEFT): 0.665 g/cm2 T-Score: -2.3 Z-Score: 0.0 WHO Classification: OSTEOPENIA Femoral NECK (LEFT): 0.586 g/cm2 T-Score: -2.4 Z-Score: 0.1 WHO Classification: OSTEOPENIA FRAX: Major osteoporotic fracture: 34% Hip fracture: 13% BD/Dexa Bone Density Study IMPRESSION: Findings of osteopenia World Health Organization criteria for BMD interpretation classify patients as: Normal (T-score at or above -1.0), Osteopenic (T-score between -1.0 and -2.5),or Osteoporotic (T-score at or below -2.5). The presence of vertebral abnormalities such as scoliosis or osteophytes, or ao rtic/ligamentous calcifications can alter readings of the lumbar spine. In such cases, readings of the hips are more reliable. Reading Location: [facility]
--- NOTE | 2024-08-01 14:32 | BI_ITS ---
PROCEDURE: SCRN MAMM (CAD)W/SARAH BILAT REASON FOR EXAM: F, Age 84 y/o, routine mammogram. TECHNIQUE: Bilateral screening digital breast tomosynthesis with 2D and 3D images. Computer aided detection. COMPARISON: Prior exam(s) dating back to April 20, 2022.. FINDINGS: The breasts are almost entirely fatty. No suspicious masses, areas of developing architectural distortion, or suspicious calcifications. Stable examination. BI/SCRN MAMM (CAD)W/SARAH BILAT IMPRESSION: BI-RADS 1: NEGATIVE. RECOMMEND ANNUAL MAMMOGRAPHIC SCREENING. Follow-up code: Routine Follow-up The patient will be notified of the results by letter. Reading Location: [place] [id number]
== END | disposition home or self-care (01) ==
LOC: OPBD 14:29
PROVIDERS: PCP Family Medicine; Referring Provider Family Medicine; Visit Provider Family Medicine
DX: Z12.31 Encounter for screening mammogram for malignant neoplasm of breast (principal); M81.0 Age-related osteoporosis without current pathological fracture
CPT/HCPCS: 77063; 77067; 77080

== ENCOUNTER → 2024-10-09 | Outpatient (CLI) | payer MEDICARE, BC, SELFPAY ==
[2024-10-09 15:58] LABS: Vitamin D,25 Hydroxy 25.9 ng/mL (30-100)
== END | disposition home or self-care (01) ==
LOC: MFPLAB 10:38
PROVIDERS: PCP Family Medicine; Referring Provider Family Medicine; Visit Provider Family Medicine
DX: E55.9 Vitamin D deficiency, unspecified (principal)
CPT/HCPCS: 82306

== ENCOUNTER → 2025-06-23 | Outpatient (CLI) | payer MEDICARE, BC, SELFPAY ==
[2025-06-23 15:20] LABS: Hematocrit 45.5 % (37-47); Hemoglobin 15.0 g/dL (12.0-15.0); Immature Granulocytes Count 0.010 X10^3/uL (0.0-0.0); Mean Corp Hgb Conc 33.0 g/dL (32-36); Mean Corpuscular Volume 91.0 fL (81-99); Mean Platelet Vol. 9.5 fl (6.2-12.0); NRBC Flagged by Analyzer 0 % (0-5); Platelet Count 222 K/mm3 (150-450); RBC Distribution Width CV 13.3 % (11.6-14.6); RBC Distribution Width SD 44.8 fl (35.1-43.9); Red Blood Count 5.00 M/mm3 (4.2-5.4); White Blood Count 7.4 K/mm3 (4.4-11.0)
[2025-06-23 16:02] LABS: AST(SGOT) 25 U/L (<=31); Alanine Aminotransfer ALT/SGPT 20 U/L (<=34); Albumin, Serum 4.1 g/dL (3.4-4.8); Alkaline Phosphatase 79 U/L (35-104); Anion Gap 11 (7-18); BUN 15 mg/dL (4-19); BUN/Creat Ratio 19.1 RATIO (10-20); Calcium,Total 9.1 mg/dL (7.6-11.0); Carbon Dioxide 23.1 mmol/L (20.0-29.0); Chloride 106 mmol/L (96-106); Cholesterol 200 mg/dL (<=200); Globulin 2.9 g/dL (2.2-4.2); Glucose 105 mg/dL (70-99); Low Density Lipoprotein Calc. 113 mg/dL; Potassium 4.1 mmol/L (3.5-5.1); Triglycerides 208 mg/dL; Very Low Density Lipoprotein 42 mg/dL (5-40); Vitamin D,25 Hydroxy 31.8 ng/mL (30-100); cholesterol:hdl ratio screen 3.97
--- OUTSIDE RECORDS SUMMARY | 2025-06-23 19:26 | XMS RPT_ITS | CCD ---
Author Organization [facility] CliniSypr Care Team Providers Care Car Sales Consultant Name Role Phone Dr. Terry Laguna Primary Care Provider [phone] Dr. Terry Laguna Referring Provider Rowan CERTIFIED APPLIANCE SERVICE TECHNICIAN, CERTIFIED APPLIANCE SERVICE TECHNICIAN-C Radha Prince Attending Provider [phone] FriendDr[address] Bullock Attending Provider Friend, Dr. Bullock Other Provider Dr. Terry Laguna Primary Care Provider Dr. Terry Laguna Referring Provider Dr. Kobe Galvan Attending Provider FriendDr. Bullock Other Provider Dr. Terry Laguna Primary Care Provider Dr. Terry Laguna Referring Provider [phone] FriendDr. Bullock Attending Provider [phone] Dr. Terry Laguna MD Primary Care Provider [phone] Dr. Terry Laguna MD Attending Provider Dr. Terry Laguna MD Referring Provider [phone] Terry Laguna Referring Unavailable Jase, Terry Primary Care Unavailable Devora Hyatt Attending Unavailable Terry Laguna Attending Unavailable Jase, Terry Referring Unavailable Laguna, Terry Primary Care Unavailable Devora Hyatt Attending Unavailable Jase, Terry Referring Unavailable Jase, Terry Primary Care Unavailable FriendKobe Attending Unavailable Laguna, Terry Referring Unavailable Laguna, Terry Primary Care Unavailable Laguna, Terry Attending Unavailable Laguna, Terry Referring Unavailable Laguna, Terry Primary Care Unavailable LagunaTeeic Attending Unavailable Laguna, Terry Referring Unavailable Laguna, Terry Primary Care Unavailable Allergies Allergy Classification Reported Allergen(s) Allergy Type Date of Onset Reaction(s) Facility (6 sources) Acetaminophen Drug Allergy 2 [facility], [facility] (6 sources) Amoxicillin Drug Allergy 2 [facility] (7 sources) Penicillins; Translations: [Penicillins] Allergy to substance 2 [facility] (2 sources) Nutmeg oil Allergy to substance 3 Swelling [facility] (1 source) Aspirin Drug Allergy 4 [facility] (1 source) Caffeine Drug Allergy 4 [facility] (1 source) Acetaminophen Drug Allergy 5 [facility] (1 source) Amoxicillin Drug Allergy 5 [facility] (1 source) Aspirin Drug Allergy 5 [facility] (1 source) Caffeine Drug Allergy 5 [facility] Medications Current Medications Medication Drug Class(es) Dates Sig (Normalized) Sig (Original) [id number] 200 actuat albuterol 0.09 mg/actuat metered dose inhaler (2 sources) beta2-Adrenergic Agonist Start: 11-23-2022 Albuterol Sulfate 90 mcg/actuation HFA aerosol inhaler Active 2 NMA INHALATION EVERY 6 HOURS as needed for shortness of breath or wheezing 6.7 November 23, 2022 12:00am Start: 11-23-2022 take 1 puff(s) by in halation every six hours Albuterol Sulfate Active 2 PUFF INHALATION EVERY 6 HOURS 6.7 November 23, 2022 12:00am amitriptyline hydrochloride 10 mg oral tablet (2 sources) Tricyclic Antidepressant Start: 01-26-2024 End: 05-01-2024 take 1 tablet by mouth at bedtime Amitriptyline 10 mg tablet Active 10 mg PO AT BEDTIME May 01, 2024 3:56pm aspirin 81 mg delayed release oral tablet (6 sources) Platelet Aggregation Inhibitor, Nonsteroidal Anti-inflammatory Drug Start: 10-12-2020 take 1 tablet by mouth once daily Aspirin (Adult Aspirin Regimen) 81 mg tablet,delayed release (DR/EC) Active 81 mg PO DAILY October 12, 2020 12:00am atenolol 50 mg oral tablet (12 sources) beta-Adrenergic Monique Start: 04-05-2021 take 1 tablet by mouth twice daily Atenolol 50 mg tablet Active 50 mg PO TWICE A DAY April 05, 2021 12:00am Start: 10-12-2020 End: 04-05-2021 take 1 tablet by mouth once daily Atenolol 25 mg tablet Discontinued 25 mg PO DAILY October 12, 2020 12:00am April 05, 2021 2:45pm Calcium (6 sources) Phosphate Binder, Calcium Start: 10-12-2020 Calc ium 250 mg tablet Active 250 {tbl} PO TWICE A DAY October 12, 2020 12:00am Start: 10-12-2020 take 1 tablet by miranda twice daily Calcium Active 250 TABLET PO TWICE A DAY October 12, 2020 12:00am celecoxib 200 mg oral capsule (3 sources) Nonsteroidal Anti-inflammatory Drug Start: 02-15-2022 take 200 mg by mouth twice daily Celecoxib Active 200 MG PO TWICE A DAY February 15, 2022 12:00am cetirizine hydrochloride 10 mg oral capsule (6 sources) Histamine-1 Receptor Antagonist Start: 10-12-2020 take 1 capsule by mouth once daily Cetirizine (Zyrtec) 10 mg capsule Active 10 mg PO DAILY October 12, 2020 12:00am cholecalciferol 0.125 mg oral capsule (6 sources) Vitamin D Start: 10-12-2020 take 1 capsule by mouth once daily Cholecalciferol (Vitamin D3) 125 mcg (5,000 unit) capsule Active 125 ug PO DAILY October 12, 2020 12:00am fluticasone propionate 0.05 mg/actuat metered dose nasal spray (1 source) Corticosteroid Start: 03-27-2023 take 50 ug nasal route every twelve hours Fluticasone Propionate (Flonase Allergy Relief) 50 mcg/actuation spray,suspension Active 2 NMA INTRANASAL Q12H March 27, 2023 12:00am administer into each nostril Fluticasone Propion-Salmeterol (6 sources) Corticosteroid, beta2-Adrenergic Agonist Start: 10-12-2020 Fluticasone Propion-Salmeterol (Advair Diskus) 100-50 mcg/dose blister with device Active 1 NMA INHALATION Q24H October 12, 2020 12:00am Start: 10-12-2020 Fluticasone Pr opion-Salmeterol (Advair Diskus) 100-50 mcg/dose blister with device Active 1 INH INHALATION Q24H October 12, 2020 12:00am montelukast 10 mg oral tablet (6 sources) Leukotriene Receptor Antagonist Start: 10-12-2020 take 1 tablet by mouth once daily Montelukast (Singulair) 10 mg tablet Active 10 mg PO DAILY October 12, 2020 12:00am Multivitamin With Minerals (5 sources) Start: 10-12-2020 take 1 capsule by mouth once daily Multivitamin With Minerals Active 1 CAP PO DAILY October 12, 2020 12:00am Multivitamin With Minerals capsule (1 source) Start: 10-12-2020 Multivitamin With Minerals capsule Active 1 NMA PO DAILY October 12, 2020 12:00am pilocarpine hydrochloride 5 mg oral tablet (1 source) Cholinergic Receptor Agonist Start: 11-09-2023 take 1 tablet by mouth at bedtime Pilocarpine Hcl 5 mg tablet Active 5 mg PO AT BEDTIME November 09, 2023 12:00am rosuvastatin calcium 10 mg oral tablet (6 sources) HMG-CoA Reductase Inhibitor Start: 01-05-2022 take 1 tablet by mouth once daily Rosuvastatin 10 mg tablet Active 10 mg PO DAILY January 05, 2022 12:00am Completed/Discontinued Medications Medication Drug Class(es) Dates Sig (Normalized) Sig (Original) colesevelam hydrochloride 625 mg oral tablet (6 sources) Bile Acid Sequestrant Start: 10-12-2020 End: 01-05-2022 take 3 tablets by mouth twice daily Colesevelam 625 mg tablet Discontinued 1875 mg PO TWICE A DAY October 12, 2020 12:00am January 05, 2022 8:47am Start: 10-12-2020 End: 01-05-2022 take 1875 mg by mouth twice daily Colesevelam Discontinued 1875 MG PO TWICE A DAY October 12, 2020 12:00am January 05, 2022 8:47am domperidone 10 mg oral tablet (3 sources) Start: 08-24-2022 End: 01-26-2024 take 10 mg by mouth four times daily domperidone Discontinued 10 mg PO .qid 120 August 24, 2022 1:00am January 26, 2024 1:25pm fenofibrate 160 mg oral tablet (6 sources) Peroxisome Proliferator Receptor alpha Agonist Start: 10-12-2020 End: 01-05-2022 take 1 tablet by mouth once daily Fenofibrate 160 mg tablet Discontinued 160 mg PO DAILY October 12, 2020 12:00am January 05, 2022 8:47am Problems Active Problems Problem Classification Problem Date Documented Date Episodic/Chronic Esophageal disorders (6 sources) Gastric reflux; Translations: [Gastro-esophageal reflux disease without esophagitis] 08-24-2022 Chronic Nausea and vomiting (13 sources) Regurgitation of food; Translations: [Vomiting, unspecified] Episodic Nutritional deficiencies (1 source) Vitamin D deficiency, unspecified; Translations: [Vitamin D deficiency, unspecified] Onset: 10-14-2024 Chronic Osteoarthritis (1 source) Osteoarthritis of right hip joint; Translations: [Unilateral primary osteoarthritis, right hip] 03-27-2023 Chronic Other and unspecified benign neoplasm (3 sources) History of polyp of colon; Translations: [Personal history of colonic polyps] 08-24-2022 Episodic Other and unspecified benign neoplasm (2 sources) Personal history of colonic polyps; Translations: [Personal history of colonic polyps] 08-24-2022 Episodic Other hereditary and degenerative nervous system conditions (6 sources) Cerebellar ataxia; 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, unspecified] 11-24-2020 Chronic Other hereditary and degenerative nervous system conditions (5 sources) Hereditary ataxia, unspecified; Translations: [Other cerebellar ataxia] Onset: 06-12-2024 Chronic Other lower respiratory disease (3 sources) Cough; Translations: [Cough] 11-23-2022 Episodic Other nervous system disorders (6 sources) Ataxia; Translations: [Ataxia, unspecified] 11-24-2020 Episodic Spondylosis; intervertebral disc disorders; other back problems (6 sources) Cervical spondylosis; Translations: [Spondylosis without myelopathy or radiculopathy, cervical region] 11-24-2020 Chronic Past or Other Problems Problem Classification Problem Date Documented Da te Episodic/Chronic Other screening for suspected conditions (not mental disorders or infectious disease) (4 sources) Patient encounter status; Translations: [Encounter for screening for malignant neoplasm of colon] Onset: 08-19-2024 10-18-2022 Episodic Results Test Name Value Interpretation Reference Range Facility Gastroenterology Visit Repor ton 05-05-2025 Gastroenterology Visit Report [facility] [address] [place] [address] OFFICE VISIT Date of Service: 05/05/25 MR#: [id number] Acct: [id number] Name: TERRENCE YANG Rep #: [id number] 2 : 1940 Provider: Kobe Galvan DO Age/Sex: 84/F [place] [facility] [place]: Signed Intake Vital Signs 11/14/23 11:29 Height 6 ft Intake Visit Reasons: 6 M FU Allergies amoxicillin Allergy (Severe, Verified 05/05/25 13:43) Hives Penicillins Allergy (Severe, Verified 05/05/25 13:43) Hives acetaminophen (From Excedrin Extra Strength) Allergy (Verified 05/05/25 13:43) Rash aspirin (From Excedrin Extra Strength) Allergy (Verified 05/05/25 13:43) Rash caffeine (From Excedrin Extra Strength) Allergy (Verified 05/05/25 13:43) Rash Medications ???Medication ???Instructions ???Recorded ???Confirmed ???Type Calcium 250 tablet PO BID 10/12/20 5 History aspirin 81 mg tablet,delayed 81 mg PO DAILY 10/12/20 05/05/25 H istory release (Adult Aspirin Regimen) cetirizine 10 mg capsule (Zyrtec) 10 mg PO DAILY 10/12/20 05/05/25 History cholecalciferol (vitamin D3) 125 125 mcg PO DAILY 10/12/20 05/05/25 History mcg (5,000 unit) capsule fluticasone 100 mcg-salmeterol 50 1 inh inhalation Q24H 10/12/20 History mcg/dose blistr powdr for inhalation (Advair Diskus) montelukast 10 mg tablet 10 mg PO DAILY 10/12/20 05/05/25 H istory (Singulair) multivitamin with minerals 1 cap PO DAILY 10/12/20 05/05/25 H istory atenolol 50 mg tablet 50 mg PO BID 04/05/21 05/05/25 His tory rosuvastatin 10 mg tablet 10 mg PO DAILY 01/05/22 05/05/25 H istory albuterol sulfate 90 mcg/actuation 2 puff inhalation Q6H PRN 05/05/25 Rx aerosol inhaler shortness of breath or wheezing 1 month #6.7 grams fluticasone propionate 50 2 spray intranasal Q12H 03/27/23 1 07/05/24 History mcg/actuation nasal spray,suspension (Flonase Allergy Relief) pilocarpine HCl 5 mg tablet 5 mg PO QHS 11/09/23 05/05/25 Hist ory amitriptyline 10 mg tablet 10 mg PO QHS #90 tabs 01/13/2509/24 Rx benzonatate 150 mg capsule 150 mg PO TID #90 caps 05/05/25 Rx Have you fallen in the past year?: No PFSH Medical History Chronic cough Alcohol use Difficulty swallowing History of hiatal hernia Screen for colon cancer Personal history of colonic polyps Wears glasses Post-menopausal Uses wheelchair History of diverticulitis Gastric reflux Non-smoker Asthma Regurgitation of food Hip fracture requiring operative repair Dysphonia Osteoporosis Right rotator cuff tendonitis Sleep disorder Visual changes Dyskinesia Vitamin D deficiency Hyperlipidemia High cholesterol Hypertension Cataracts, bilateral History of UTI Seasonal allergies Surgical History History of colonoscopy History of esophagogastroduodenoscopy (EGD) History of tonsillectomy History of cholecystectomy Family History Other Alcoholism Angina at rest Heart disease High cholesterol Hypertension Myocardial infarction Social History Smoking Status: Never smoker Electronic Cigarette Use: not used second hand exposure: No alcohol intake: current alcohol intake frequency: a few times a week Alcohol type: beer, wine and hard liquor substance use type: does not use HPI HPI Details: TERRENCE YANG, is a 84 F who presents to the office today for follow up. BGI established in 2021 for postprandial regurgitation. EGD 8 moderate Schatzki ring, Savary dilator 45F; Irregular Zline 40cm from incisors with inflammation, without metaplasia; medium hiatal hernia. Barium Swallow 9.14.22 without abnormality. Colonoscopy 11.02.22 Colonoscopy diverticulosis. Remaining exam without pertinent abnormality. EGD 11.14.23 Abnormal esophageal motility, consistent with presbyesophagus. Injected with botulinum toxin. No gross lesions in the entire stomach. No gross lesions in the duodenal bulb. No specimens collected. Last OV 05.01.24 Pt continues amitriptyline for difficulty swallowing. No GI concerns at this time. OV 11.01.24 Pt no longer having issues with swallowing. She does endorse some issues with swallowing liquids on occasion. She has a cough that has been bothering her. no heartburn, no n/v, no constipation, no diarrhea. OV 05.05.25- Pt well since last visit. Denies trouble swallow but continues to have persistent dry cough. She denies nausea, vomiting or heartburn. BMs normal. ROS Const Constitutional: No fatigue, fever(s) or weight change ENT ENT: No difficulty swallowing (more content not included)... Normal [facility] Gastroenterology Visit Repor ton 11-01-2024 Gastroenterology Visit Report [facility] [address] [place] [address] OFFICE VISIT Date of Service: 11/01/24 MR#: [id number] Acct: [id number] Name: TERRENCE YANG Rep #: [id number] 1 : 1940 Provider: [place] Shetty Age/Sex: 84/F [place] [facility] [email or web address] Status: Signed Intake Vital Signs 11/14/23 11:29 Height 6 ft Intake Visit Reasons: FU Chief Complaint: difficulty swallowing Allergies amoxicillin Allergy (Severe, Verified 11/14/23 11:27) Hives Penicillins Allergy (Severe, Verified 11/14/23 11:27) Hives acetaminophen (From Excedrin Extra Strength) Allergy (Verified 11/14/23 11:27) Rash aspirin (From Excedrin Extra Strength) Allergy (Verified 11/14/23 11:27) Rash caffeine (From Excedrin Extra Strength) Allergy (Verified 11/14/23 11:27) Rash Have you fallen in the past year?: Yes Nurse's Note: OV 11.01.24 Pt here for f/u and reports no changes since last appt. [facility] Medical History (Updated 11/09/23 @ 14:44 by Aundrea Diana) Chronic cough Alcohol use Difficulty swallowing History of hiatal hernia Screen for colon cancer Personal history of colonic polyps Wears glasses Post-menopausal Uses wheelchair History of diverticulitis Gastric reflux Non-smoker Asthma Regurgitation of food Hip fracture requiring operative repair Dysphonia Osteoporosis Right rotator cuff tendonitis Sleep disorder Visual changes Dyskinesia Vitamin D deficiency Hyperlipidemia High cholesterol Hypertension Cataracts, bilateral History of UTI Seasonal allergies Surgical History (Updated 11/09/23 @ 14:33 by Aundrea Diana) History of colonoscopy History of esophagogastroduodenoscopy (EGD) History of tonsillectomy History of cholecystectomy Family History Other Alcoholism Angina at rest Heart disease High cholesterol Hypertension Myocardial infarction Social History Smoking Status: Never smoker Electronic Cigarette Use: not used second hand exposure: No alcohol intake: current alcohol intake frequency: a few times a week Alcohol type: beer, wine and hard liquor substance use type: does not use HPI HPI Chief Complaint: difficulty swallowing Details: TERRENCE YANG, is a 84 F who presents to the office today for f/u. I established in 2021 for postprandail regurustation. EGD 8. moderate Schatzki ring, Savary dilator 45F; Irregular Zline 40cm from incisors with inflammation, without metaplasia; medium hiatal hernia. Barium Swallow . without abnormality. Colonoscopy ..23 Colonoscopy diverticulosis. Remaining exam without pertinent abnormality. EGD 24 Abnormal esophageal motility, consistent with presbyesophagus. Injected with botulinum toxin. No gross lesions in the entire stomach. No gross lesions in the duodenal bulb. No specimens collected. Last OV 10.30.24 Pt continues amitriptyline for difficulty swallowing. No GI concerns at this time. OV 5.2.25 Pt no longer having issues with swallowing. She does endorse some issues with swallowing liquids on occasion. SHe has a cough that has been bothering her. no heartburn, no n/v, no constipation, no diarrhea. ROS Const Constitutional: No anorexia, fatigue, fever(s), weight change or sleep problems Eyes Eyes: No change in vision ENT ENT: No abnormal hearing, difficulty swallowing, mouth lesions, tongue swelling or throat swelling Resp Respiratory: No cough or shortness of breath Cardio Cardiology: No chest pain at rest, chest pain with exertion, shortness of breath or dyspnea on exertion Gastro GI: No difficulty swallowing Genitourinary-Female: No difficulty urinating or burning urination Musc Musculoskeletal: No joint pain, joint swelling, muscle weakness or decreased muscle mass Skin Skin: No hair loss in leg, yellowing of the eye, itchy eyes, rash, skin ulcer or skin swelling Neuro Neurology: No abnormal hearing, abnormal movements, confusion, unsteady gait/balance or memory loss Psych Psychiatric: No anxiety, No confusion and No memory loss Endo Endocrine: No fatigue or weight change Aller/Imm Allergy/Immunologic: No itchy eyes, throat swelling or tongue swelling Kirk/Lymp Hematologic/Lymphatic: No easy bleeding, easy bruising or enlarged lymph nodes Exam Const General: cooperative and comfortable Nutritional Appearance: average body habitus and well nourished HENMT Head: normal to inspection Ears: hearing grossly normal bilaterally Nose: external nose normal Face and sinus: normal facial exam Eyes General: appearance normal, both eyes and all related structures Neck Neck: normal visual inspection Chest Chest palpation inspection: normal inspection of the chest and normal palpa (more content not included)... Normal [facility] Vitamin D, 25-hydroxyOrdered By: Terry Laguna on 10-09-2024 Vitamin D 25-Hydroxy 25.9 ng/mL Low 30-100 [facility] Comment on above: Vitamin D StatusDefi ciency: <20 ng/mL (50nmol/L)Insufficiency: 20-30 ng/mL (50-75 nmol/L)Sufficiency: 30-100 ng/mL (75-250 nmol/L)Toxicity: >100 ng/mL (>250 nmol/L) Vitamin D,25 Hydroxyon 10-09 Vitamin D 25-OH 25.9 ng/mL Low 30-100 [facility] Comment on above: Result Comment: Nataliia min D Status Deficiency: <20 ng/mL (50nmol/L) Insufficiency: 20-30 ng/mL (50-75 nmol/L) Sufficiency: 30-100 ng/mL (75-250 nmol/L) Toxicity: >100 ng/mL (>250 nmol/L) Performed By: #### L 506.1001 #### [facility] [address] [place], [address] Dexa Bone Density Studyon Dexa Bone Density Study [facility] Imaging Services [address] [place] [address] Dexa Bone Density Study MR#: [id number] Acct: [id number] Name: TERRENCE YANG Rep #: [id number] : 1940 F 84 From: Ross Quezada MD PCP: Dr. Terry Laguna MD Status: REG CLI Study: Dexa Bone Density Study Date of Exam: 08/01/24 Exam# [id number] Ordering Dr: Terry Laguna MD EXAM: CLINICAL INDICATION: Determine bone density. CLINICAL HISTORY: Screening COMPARISON: 06/09/2015. TECHNIQUE: Bone densitometry of the lumbar spine and hips was performed using the HOLOGIC DEXA scanner. FINDINGS: Bone Density Measurements: SPINE AP Spine (L1-L4): 1.040 g/cm2 T-Score: 0.6 Z-Score: 3.2 WHO Classification: NORMAL LEFT FEMUR Femoral TOTAL (LEFT): 0.665 g/cm2 T-Score: -2.3 Z-Score: 0.0 WHO Classification: OSTEOPENIA Femoral NECK (LEFT): 0.586 g/cm2 T-Score: -2.4 Z-Score: 0.1 WHO Classification: OSTEOPENIA FRAX: Major osteoporotic fracture: 34% Hip fracture: 13% BD/Dexa Bone Density Study IMPRESSION: Findings of osteopenia World Health Organization criteria for BMD interpretation classify patients as: Normal (T-score at or above -1.0), Osteopenic (T-score between -1.0 and -2.5),or Osteoporotic (T-score at or below -2.5). The presence of vertebral abnormalities such as scoliosis or osteophytes, or aortic/ligamentous calcifications can alter readings of the lumbar spine. In such cases, readings of the hips are more reliable. Reading Location: [facility] CC: Dr. Terry Laguna MD 6Th Grade Teacher: Signed Normal [facility] SCRN MAMM (CAD)W/SARAH BILATo n 08-01-2024 SCRN MAMM (CAD)W/SARAH BILAT [facility] Imaging Services [address] [place] [address] SCRN MAMM (CAD)W/SARAH BILAT MR#: [id number] Acct: [id number] Name: TERRENCE YANG Rep #: [id number] : 1940 F 84 From: Tristin sood MD PCP: Dr. Terry Laguna MD Status: [facility] Study: SCRN MAMM (CAD)W/SARAH BILAT Date of Exam: 07/05 Exam# [id number] Ordering Dr: Terry Laguna MD PROCEDURE: SCRN MAMM (CAD)W/SARAH BILAT REASON FOR EXAM: F, Age 84 y/o, routine mammogram. TECHNIQUE: Bilateral screening digital breast tomosynthesis with 2D and 3D images. Computer aided detection. COMPARISON: Prior exam(s) dating back to April 20, 2022.. FINDINGS: The breasts are almost entirely fatty. No suspicious masses, areas of developing architectural distortion, or suspicious calcifications. Stable examination. BI/SCRN MAMM (CAD)W/SARAH BILAT IMPRESSION: BI-RADS 1: NEGATIVE. RECOMMEND ANNUAL MAMMOGRAPHIC SCREENING. Follow-up code: Routine Follow-up The patient will be notified of the results by letter. Reading Location: [place] [address] CC: Dr. Terry Laguna MD 6Th Grade Teacher: Signed Normal [facility] CBC W/Diff, Automatedon 05-03 Absolute Lymph 2.27 X10 3/uL Normal 0.83-4.51 [facility] Comment on above: Order Comment: Order Date: 05/16/24 Order Info: [id number] - CBCD Performed By: #### L 501.4900, L100.0100, L500.4050, L501.9520, L501.6400, L506.1000 #### [facility] [address] [place], [address] Absolute Neut 4.5 X10 3/uL Normal 2.0-7.7 [facility] Comment on above: Order Comment: Order Date: 05/16/24 Order Info: [id number] - CBCD Performed By: #### L 501.4900, L100.0100, L500.4050, L501.9520, L501.6400, L506.1000 #### [facility] [address] [place], [address] Basophils/100 WBC (Bld) 1.0 % Normal 0-1 [facility] Comment on above: Order Comment: Order Date: 05/16/24 Order Info: [id number]- - CBCD Performed By: #### L 501.4900, L100.0100, L500.4050, L501.9520, L501.6400, L506.1000 #### [facility] [address] [place], [address] Eosinophils/100 WBC (Bld) 3.3 % Normal 0-5 [facility] Comment on above: Order Comment: Order Date: 05/16/24 Order Info: [id number]- - CBCD Performed By: #### L 501.4900, L100.0100, L500.4050, L501.9520, L501.6400, L506.1000 #### [facility] [address] [place], [address] Erythrocyte distribution width (RBC) [Ratio] 13.2 % Normal 11.6-14.6 [facility] Comment on above: Order Comment: Order Date: 05/16/24 Order Info: [id number]- - CBCD Performed By: #### L 501.4900, L100.0100, L500.4050, L501.9520, L501.6400, L506.1000 #### [facility] [address] [place], [address] Hematocrit (Bld) [Volume fraction] 44.5 % Normal 37-47 [facility] Comment on above: Order Comment: Order Date: 05/16/24 Order Info: [id number] - CBCD Performed By: #### L 501.4900, L100.0100, L500.4050, L501.9520, L501.6400, L506.1000 #### [facility] [address] [place], [address] Hemoglobin (Bld) [Mass/Vol] 14.5 g/dL Normal 12.0-15.0 [facility] Comment on above: Order Comment: Order Date: 05/16/24 Order Info: 0184- - CBCD Performed By: #### L 501.4900, L100.0100, L500.4050, L501.9520, L501.6400, L506.1000 #### [facility] [address] [place], [address] IG% 0.100 Normal 0.0-0.9 [facility] Comment on above: Order Comment: Order Date: 05/16/24 Order Info: 0184- - CBCD Result Comment: IG% - Immature Granulocytes (promyelocytes, myelocytes and metamyelocytes) > 1% indicates that a LEFT SHIFT is Present. Performed By: #### L 501.4900, L100.0100, L500.4050, L501.9520, L501.6400, L506.1000 #### [facility] [address] [place], [address] Lymphocytes/100 WBC (Bld) 29.0 % Normal 19-41 [facility] Comment on above: Order Comment: Order Date: 05/16/24 Order Info: 0184-1 - CBCD Performed By: #### L 501.4900, L100.0100, L500.4050, L501.9520, L501.6400, L506.1000 #### [facility] [address] [place], [address] MCH (RBC) [Entitic mass] 30.1 pg Normal 27.0-32.0 [facility] Comment on above: Order Comment: Order Date: 05/16/24 Order Info: 0184-1 - CBCD Performed By: #### L 501.4900, L100.0100, L500.4050, L501.9520, L501.6400, L506.1000 #### [facility] [address] [place], [address] MCHC (RBC) [Mass/Vol] 32.6 g/dL Normal 32-36 [facility] Comment on above: Order Comment: Order Date: 05/16/24 Order Info: 0184-1 - CBCD Performed By: #### L 501.4900, L100.0100, L500.4050, L501.9520, L501.6400, L506.1000 #### [facility] [address] [place], [address] MCV (RBC) [Entitic vol] 92.3 fL Normal 81-99 [facility] Comment on above: Order Comment: Order Date: 05/16/24 Order Info: 0184-1 - CBCD Performed By: #### L 501.4900, L100.0100, L500.4050, L501.9520, L501.6400, L506.1000 #### [facility] [address] [place], [address] Monocytes/100 WBC (Bld) 9.6 % Normal 0-10 [facility] Comment on above: Order Comment: Order Date: 05/16/24 Order Info: 0184-1 - CBCD Performed By: #### L 501.4900, L100.0100, L500.4050, L501.9520, L501.6400, L506.1000 #### [facility] [address] [place], [address] Neutrophils/100 WBC (Bld) 57.0 % Normal 47-70 [facility] Comment on above: Order Comment: Order Date: 05/16/24 Order Info: 0184-1 - CBCD Performed By: #### L 501.4900, L100.0100, L500.4050, L501.9520, L501.6400, L506.1000 #### [facility] [address] [place], [address] Nucleated RBC (Bld) [#/Vol] 0 10*3/uL Normal 0-5 [facility] Comment on above: Order Comment: Order Date: 05/16/24 Order Info: 018- - CBCD Performed By: #### L 501.4900, L100.0100, L500.4050, L501.9520, L501.6400, L506.1000 #### [facility] [address] [place], [address] Platelet mean volume (Bld) [Entitic vol] 9.6 fL Normal 6.2-12.0 [facility] Comment on above: Order Comment: Order Date: 05/16/24 Order Info: 0184- - CBCD Performed By: #### L 501.4900, L100.0100, L500.4050, L501.9520, L501.6400, L506.1000 #### [facility] [address] [place], [address] Platelets (Bld) [#/Vol] 209 10*3/uL Normal 150-450 [facility] Comment on above: Order Comment: Order Date: 05/16/24 Order Info: 0184- - CBCD Performed By: #### L 501.4900, L100.0100, L500.4050, L501.9520, L501.6400, L506.1000 #### [facility] [address] [facility], [address] RBC (Bld) [#/Vol] 4.82 10*6/uL Normal 4.2-5.4 [facility] Comment on above: Order Comment: Order Date: 05/16/24 Order Info: 0184-1 - CBCD Performed By: #### L 501.4900, L100.0100, L500.4050, L501.9520, L501.6400, L506.1000 #### [facility] [address] [place], [address] RDW SD 45.4 fl High 35.1-43.9 [facility] Comment on above: Order Comment: Order Date: 05/16/24 Order Info: 0184-1 - CBCD Performed By: #### L 501.4900, L100.0100, L500.4050, L501.9520, L501.6400, L506.1000 #### [facility] [address] [place], [address] WBC (Bld) [#/Vol] 7.8 10*3/uL Normal 4.4-11.0 [facility] Comment on above: Order Comment: Order Date: 05/16/24 Order Info: 0184- - CBCD Performed By: #### L 501.4900, L100.0100, L500.4050, L501.9520, L501.6400, L506.1000 #### [facility] [address] [place], [address] Cholesterolon 05-16-2024 Cholesterol [Mass/Vol] 193 mg/dL Normal 200 [facility] Comment on above: Order Comment: Order Date: 05/16/24 Order Info: 0786-1 - CMP Order Info: 2093-3 - CHOL Order Info: 2085-9 - HDL Order Info: 3016-3 - TSH Result Comment: <200 mg/dL Desirable 200-240 mg/dL Borderline >240 mg/dL High Risk Performed By: #### L 501.4900, L100.0100, L500.4050, L501.9520, L501.6400, L506.1000 #### [facility] [address] [place], [address] Comprehensive Metabolic Prof ilon 05-16-2024 Albumin [Mass/Vol] 3.2 g/dL Normal 3.2-5.0 [facility] Comment on above: Order Comment: Order Date: 05/16/24 Order Info: 785-1 - CMP Order Info: 2092-08 - CHOL Order Info: 2085-03 - HDL Order Info: 3 - TSH Performed By: #### L 501.4900, L100.0100, L500.4050, L501.9520, L501.6400, L506.1000 #### [facility] [address] [place], [address] Albumin/Globulin [Mass ratio] 0.9 {ratio} Normal 0.9-2.4 [facility] Comment on above: Order Comment: Order Date: 05/16/24 Order Info: 785-07 - CMP Order Info: 2092-08 - CHOL Order Info: 2085-03 HDL Order Info: 3015-09 - TSH Performed By: #### L 501.4900, L100.0100, L500.4050, L501.9520, L501.6400, L506.1000 #### [facility] [address] [place], [place], [id number] ALK P 84 U/L Normal 45-117 [facility] Comment on above: Order Comment: Order Date: 05/16/24 Order Info: 785-07 - CMP Order Info: 2092-08 - CHOL Order Info: 2085-03 HDL Order Info: 3015-09 - TSH Performed By: #### L 501.4900, L100.0100, L500.4050, L501.9520, L501.6400, L506.1000 #### [facility] [address] [place], [place], [id number] ALT [Catalytic activity/Vol] 26 U/L Normal 13-56 [facility] Comment on above: Order Comment: Order Date: 05/16/24 Order Info: 785-07 - CMP Order Info: 2092-08 - CHOL Order Info: 2085-03 HDL Order Info: 3015-09 - TSH Performed By: #### L 501.4900, L100.0100, L500.4050, L501.9520, L501.6400, L506.1000 #### [facility] [address] [place], [address] AST [Catalytic activity/Vol] 18 U/L Normal 15-37 [facility] Comment on above: Order Comment: Order Date: 05/16/24 Order Info: 785-1 - CMP Order Info: 2092-08 - CHOL Order Info: 2085-03 HDL Order Info: 3015-09 - TSH Performed By: #### L 501.4900, L100.0100, L500.4050, L501.9520, L501.6400, L506.1000 #### [facility] [address] [place], [place], [address] Bilirubin [Mass/Vol] 0.40 mg/dL Normal 0.20-1.00 [facility] Comment on above: Order Comment: Order Date: 05/16/24 Order Info: 785-07 - CMP Order Info: 2092-08 - CHOL Order Info: 2085-03 HDL Order Info: 3015-09 - TSH Result Comment: For patients on eltrombopag therapy, use of Dimension [place] TBIL is not recommended. Performed By: #### L 501.4900, L100.0100, L500.4050, L501.9520, L501.6400, L506.1000 #### [facility] [address] [place], [address] BUN/CRE 22.2 RATIO High 10-20 [facility] Comment on above: Order Comment: Order Date: 05/16/24 Order Info: 1 - CMP Order Info: 2092-08 - CHOL Order Info: 2085-03 HDL Order Info: 3013 - TSH Performed By: #### L 501.4900, L100.0100, L500.4050, L501.9520, L501.6400, L506.1000 #### [facility] [address] [place], [address] CA,Total 8.4 mg/dL Low 8.5-10.1 [facility] Comment on above: Order Comment: Order Date: 05/16/24 Order Info: 1 - CMP Order Info: 2092-08 - CHOL Order Info: 2085-03 - HDL Order Info: 3 - TSH Performed By: #### L 501.4900, L100.0100, L500.4050, L501.9520, L501.6400, L506.1000 #### [facility] [address] [place], [address] Chloride [Moles/Vol] 111 mmol/L High 98-107 [facility] Comment on above: Order Comment: Order Date: 05/16/24 Order Info: 785-07 - CMP Order Info: 2092-08 - CHOL Order Info: 2085-03 HDL Order Info: 3 - TSH Performed By: #### L 501.4900, L100.0100, L500.4050, L501.9520, L501.6400, L506.1000 #### [facility] [address] [place], [address] CO2 [Moles/Vol] 26.0 mmol/L Normal 21.0-32.0 [facility] Comment on above: Order Comment: Order Date: 05/16/24 Order Info: 785-07 - CMP Order Info: 2092-08 - CHOL Order Info: 2085-03 HDL Order Info: 3 - TSH Performed By: #### L 501.4900, L100.0100, L500.4050, L501.9520, L501.6400, L506.1000 #### [facility] [address] [place], [address] Creatinine [Mass/Vol] 0.86 mg/dL Normal 0.55-1.02 [facility] Comment on above: Order Comment: Order Date: 05/16/24 Order Info: 785-07 - CMP Order Info: 2092-08 - CHOL Order Info: 2085-03 HDL Order Info: 3015-09 - TSH Result Comment: The validity of the calculated GFR GFRAA in patients over 70 years has not been determined. Clinical correlation is essential. Performed By: #### L 501.4900, L100.0100, L500.4050, L501.9520, L501.6400, L506.1000 #### [facility] [address] [place], [address] EST GFR - AA 82 mL/min Normal >60 [facility] Comment on above: Order Comment: Order Date: 05/16/24 Order Info: 785-07 - CMP Order Info: 2092-08 - CHOL Order Info: 2085-03 HDL Order Info: 3 - TSH Result Comment: Afri can [place] GFR Calc Performed By: #### L 501.4900, L100.0100, L500.4050, L501.9520, L501.6400, L506.1000 #### [facility] [address] [place], [address] GAP 6 Normal 5-15 [facility] Comment on above: Order Comment: Order Date: 05/16/24 Order Info: 785-07 - CMP Order Info: 2092-08 - CHOL Order Info: 2085-03 HDL Order Info: 3015-09 - TSH Performed By: #### L 501.4900, L100.0100, L500.4050, L501.9520, L501.6400, L506.1000 #### [facility] [address] [place], [place], [address] GFR/1.73 sq M.predicted among non-blacks MDRD (S/P/Bld) [Vol rate/Area] 68 mL/min/{1.73_m2} Normal >60 [facility] Comment on above: Order Comment: Order Date: 05/16/24 Order Info: 785-07 - CMP Order Info: 2092-08 - CHOL Order Info: 2085-03 HDL Order Info: 3015-09 - TSH Result Comment: Non- GFR Calc Performed By: #### L 501.4900, L100.0100, L500.4050, L501.9520, L501.6400, L506.1000 #### [facility] [address] [place], [address] Globulin (S) [Mass/Vol] 3.4 g/dL Normal 2.2-4.2 [facility] Comment on above: Order Comment: Order Date: 05/16/24 Order Info: 785-07 - CMP Order Info: 2092-08 - CHOL Order Info: 2085-03 HDL Order Info: 3015-09 - TSH Performed By: #### L 501.4900, L100.0100, L500.4050, L501.9520, L501.6400, L506.1000 #### [facility] [address] [place], [address] Glucose [Mass/Vol] 141 mg/dL High 74-106 [facility] Comment on above: Order Comment: Order Date: 05/16/24 Order Info: 785-07 - CMP Order Info: 2092-08 - CHOL Order Info: 2085-03 HDL Order Info: 3015-09 - TSH Result Comment: Fast ing Glucose result greater than or equal to 126 mg/dL suggests DIABETES MELLITUS per A.D.A. criteria. Performed By: #### L 501.4900, L100.0100, L500.4050, L501.9520, L501.6400, L506.1000 #### [facility] [address] [place], [address] Potassium [Moles/Vol] 3.6 mmol/L Normal 3.5-5.1 [facility] Comment on above: Order Comment: Order Date: 05/16/24 Order Info: 1 - CMP Order Info: 2092-08 - CHOL Order Info: 2085-03 HDL Order Info: 3015-09 - TSH Performed By: #### L 501.4900, L100.0100, L500.4050, L501.9520, L501.6400, L506.1000 #### [facility] [address] [place], [address] Sodium [Moles/Vol] 142 mmol/L Normal 136-145 [facility] Comment on above: Order Comment: Order Date: 05/16/24 Order Info: 785-1 - CMP Order Info: 2092-08 - CHOL Order Info: 2085-03 - HDL Order Info: 3015-09 - TSH Performed By: #### L 501.4900, L100.0100, L500.4050, L501.9520, L501.6400, L506.1000 #### [facility] [address] [place], [address] T PROT 6.6 g/dL Normal 6.4-8.2 [facility] Comment on above: Order Comment: Order Date: 05/16/24 Order Info: 785-07 - CMP Order Info: 2092-08 - CHOL Order Info: 2085-03 - HDL Order Info: 3015-09 - TSH Performed By: #### L 501.4900, L100.0100, L500.4050, L501.9520, L501.6400, L506.1000 #### [facility] [address] [place], [address] Urea nitrogen [Mass/Vol] 19 mg/dL High 7-18 [facility] Comment on above: Order Comment: Order Date: 05/16/24 Order Info: 785-07 - CMP Order Info: 2092-08 - CHOL Order Info: 2085-03 - HDL Order Info: 3015-09 - TSH Performed By: #### L 501.4900, L100.0100, L500.4050, L501.9520, L501.6400, L506.1000 #### [facility] [address] [place], [address] High Density Lipoproteinon 1 07-16-2023 Cholesterol in HDL [Mass/Vol] 45 mg/dL Normal [facility] Comment on above: Order Comment: Order Date: 05/16/24 Order Info: 07- - CMP Order Info: 2092-08 - CHOL Order Info: 2085-03 - HDL Order Info: 3015-09 - TSH Result Comment: The drugs N-Acetylcysteine and Metamizole may falsely depress this assay. Reference Range HDL <40 mg/dL Low HDL Cholesterol HDL >or= 60 mg/dL High HDL Cholesterol Performed By: #### L 501.4900, L100.0100, L500.4050, L501.9520, L501.6400, L506.1000 #### [facility] [address] [place], [address] Thyroid Stim Hormone (TSH)on 05-16-2024 TSH 2.130 uIU/mL Normal 0.358-3.740 [facility] Comment on above: Order Comment: Order Date: 05/16/24Order Info: 0786 - CMPOrder Info: 2092-08 - CHOLOrder Info: 2085-03 - HDLOrder Info: 3015-09 - TSH Performed By: #### L 501.4900, L100.0100, L500.4050, L501.9520, L501.6400, L506.1000 ####[facility] [address] [place], [place], [id number] Vitamin D,25 Hydroxyon 05-16 Vitamin D 25-OH 22.4 ng/mL Normal [facility] Comment on above: Order Comment: Order Date: 05/16/24 Order Info: 72525-1 - VITD25 Result Comment: Nataliia min D 25(OH) Status Range Deficiency <20 ng/mL (50nmol/L) Insufficiency 20 - 30 ng/mL (50 - 75 nmol/L) Sufficiency 30 - 100 ng/mL (75 - 250 nmol/L) Toxicity >100 ng/mL (>250 nmol/L) Performed By: #### L 501.4900, L100.0100, L500.4050, L501.9520, L501.6400, L506.1000 #### [facility] [place], [address] Absolute lymphocyte countOrd ered By: Terry Laguna on 03-14-2023 Lymphocytes Auto (Unsp spec) [#/Vol] 2.34 10*3/uL 0.83-4.51 [facility] Basophil percentageOrdered B y: Terry Laguna on 03-14-2023 Basophils/100 WBC (Bld) 0.9 % 0-1 [facility] Eosinophils/100 WBC (Bld) 3.6 % 0-5 [facility] Neutrophils (Bld) [#/Vol] 3.5 10*3/uL 2.0-7.7 [facility] Neutrophils/100 WBC (Bld) 51.1 % 47-70 [facility] WBC (Bld) [#/Vol] 6.8 10*3/uL 4.4-11.0 [facility] Blood erythrocytes count (nu mber/volume)Ordered By: Terry Laguna on 03-14-2023 RBC (Bld) [#/Vol] 5.03 10*6/uL 4.2-5.4 [facility] Blood hemoglobin measurement (mass/volume)Ordered By: Terry Laguna on 03-14-2023 Hemoglobin (Bld) [Mass/Vol] 15.1 g/dL 12.0-15.0 [facility] Blood lymphocytes/100 leukoc ytesOrdered By: Terry Laguna on 03-14-2023 Lymphocytes/100 WBC (Bld) 34.7 % 19-41 [facility] Blood monocytes/100 leukocyt esOrdered By: Terry Laguna on 03-14-2023 Monocytes/100 WBC (Bld) 9.6 % 0-10 [facility] Blood platelet mean volumeOr dered By: Terry Laguna on 03-14-2023 Platelet mean volume (Bld) [Entitic vol] 9.9 fL 6.2-12.0 [facility] Determination of erythrocyte mean corpuscular volume (MCV)Ordered By: Terry Laguna on 03-14-2023 MCV (RBC) [Entitic vol] 95.2 fL 81-99 [facility] Erythrocyte sedimentation ra teOrdered By: Terry Laguna on 03-14-2023 ESR (Bld) [Velocity] 9 mm/h 0-30 [facility] Hematocrit Auto (Bld) [Volum e fraction]Ordered By: Terry Laguna on 03-14-2023 Hematocrit (Bld) [Volume fraction] 47.9 % 37-47 [facility] - Hematology and Cell countsOrdered By: Terry Laguna on 03-14-2023 Erythrocyte distribution width (RBC) [Entitic vol] 46.1 fL 35.1-43.9 [facility] Erythrocyte distribution width (RBC) [Ratio] 13.2 % 11.6-14.6 [facility] Immature granulocytes/100 WBC (Bld) 0.100 % 0.0-0.9 [facility] Comment on above: IG% - Immature Granu locytes (promyelocytes, myelocytes and metamyelocytes) > 1% indicates that a LEFT SHIFT is Present. MCH (RBC) [Entitic mass] 30.0 pg 27.0-32.0 [facility] Nucleated RBC/100 WBC (Bld) [Ratio] 0 % 0-5 [facility] MCHC Auto (RBC) [Mass/Vol]Or dered By: Terry Laguna on 03-14-2023 MCHC (RBC) [Mass/Vol] 31.5 g/dL 32-36 [facility] No Panel InformationOrdered By: Terry Laguna on 03-14-2023 Anti-Nuclear Antibody Screen Negative Negative [facility] Comment on above: Performed at: [address] Director: Vinny Ayoub PhD, Phone: [phone] Platelets bldOrdered By: Daria Laguna on 03-14-2023 Platelets (Bld) [#/Vol] 220 10*3/uL 150-450 [facility] Serum or plasma C reactive p rotein measurement (mass/volume)Ordered By: Terry Laguna on 03-14-2023 CRP [Mass/Vol] mg/L 0.0-3.0 [facility] Comment on above: C-Reactive Protein ( CRP) provides useful information for thediagnosis, therapy and monitoring of inflammatory processesand associated diseases. For the evaluation of Relative Riskfor Cardiovascular Disease, a High Sensitivity CRP (HSCRP)should be ordered. Serum rheumatoid factor dete ctionOrdered By: Terry Laguna on 03-14-2023 Rheumatoid factor Ql (S) < 10.0 IU/mL <15 [facility] Vital Signs Date Time Vital Sign Value Performing Clinician Lavern boyce 11-02-2022 09:51-0400 Body temperature 97.4 [degF] Dr. Terry Laguna Work Phone: [facility] 11-02-2022 09:51-0400 Diastolic blood pressure 59 mm[Hg] Dr. Terry Laguna Work Phone: [facility] 11-02-2022 09:51-0400 Heart rate 67 /min Dr. Terry Laguna Work Phone: [facility] 11-02-2022 09:51-0400 Respiratory rate 18 /min Dr. Terry Laguna Work Phone: [facility] 11-02-2022 09:51-0400 SaO2% (BldA) [Mass fraction] 97 % Dr. Terry Laguna Work Phone: [facility] 11-02-2022 09:51-0400 Systolic blood pressure 101 mm[Hg] Dr. Terry Laguna Work Phone: [facility] 11-02-2022 08:32-0400 Body height 182.[address] Terry Laguna Work Phone: [facility] 11-02-2022 08:32-0400 Body mass index (BMI) [Ratio] 28.2 kg/m2 Dr. Terry Laguna Work Phone: [facility] 11-02-2022 08:32-0400 Body weight 94.[address] Terry Laguna Work Phone: [facility] 02-17-2022 08:15-0400 Body temperature 97.1 [degF] Dr. Terry Laguna Work Phone: [facility] Work Phone: 02-17-2022 08:15-0400 Diastolic blood pressure 69 mm[Hg] Dr. Terry Laguna Work Phone: [facility] Work Phone: 02-17-2022 08:15-0400 Heart rate 60 /min Dr. Terry Laguna Work Phone: [facility] Work Phone: 02-17-2022 08:15-0400 Respiratory rate 18 /min Dr. Terry Laguna Work Phone: [facility] Work Phone: 02-17-2022 08:15-0400 SaO2% (BldA) [Mass fraction] 96 % Dr. Terry Laguna Work Phone: [facility] Work Phone: 02-17-2022 08:15-0400 Systolic blood pressure 113 mm[Hg] Dr. Terry Laguna Work Phone: [facility] Work Phone: 02-17-2022 07:02-0400 Body height 175.[address] Terry Laguna Work Phone: [facility] Work Phone: 02-17-2022 07:02-0400 Body mass index (BMI) [Ratio] 28.8 kg/m2 Dr. Terry Laguna Work Phone: [facility] Work Phone: 02-17-2022 07:02-0400 Body weight 88.[address] Terry Laguna Work Phone: [facility] Work Phone: 01-05-2022 08:37-0400 Diastolic blood pressure 77 mm[Hg] Dr. Terry Laguna Work Phone: [facility] Work Phone: 01-05-2022 08:37-0400 Heart rate 62 /min Dr. Terry Laguna Work Phone: [facility] Work Phone: 01-05-2022 08:37-0400 SaO2% (BldA) [Mass fraction] 97 % Dr. Terry Laguna Work Phone: [facility] Work Phone: 01-05-2022 08:37-0400 Systolic blood pressure 153 mm[Hg] Dr. Terry Laguna Work Phone: [facility] Work Phone: Encounters Encounter Date Encounter Type Care Provider Facility Start: 05-05-2025 End: 05-05-2025 ambulatory Kobe Galvan Facility:[facility] Start: 11-01-2024 End: 11-01-2024 ambulatory Devora Hyatt Facility:[facility] Start: 10-18-2024 ambulatory Terry Laguna Facility:[facility] Start: 10-09-2024 End: 10-09-[address] Terry Laguna MD Work Phone: [facility] Work Phone: Start: 10-09-2024 End: 10-09-[address] [facility] Start: 10-09-2024 End: 10-09-2024 ambulatory Terry Laguna Facility:[facility] Start: 08-01-2024 End: 08-01-[address] Terry Laguna MD -Outpatient Bone Densitometry Work Phone: Start: 08-01-2024 End: 08-01-2024 ambulatory Terry Laguna Facility:[facility] Start: 05-16-2024 End: 05-16-2024 ambulatory Terry Laguna Facility:[facility] Start: 03-14-2023 End: 03-14-[address] Terry Laguna Work Phone: [facility] Work Phone: Start: 03-14-2023 End: 03-14-[address] Terry Laguna Work Phone: [facility] Work Phone: Start: 11-23-2022 End: 11-23-[address] Terry Laguna Work Phone: [facility] Work Phone: Start: 11-02-2022 Non-patient / Non-visit Dr. Terry Laguna Work Phone: [facility] Start: 11-02-2022 End: 11-02-2022 Admission to same day surgery center Dr. Terry Laguna Work Phone: [facility]-Endoscopy Start: 11-02-2022 End: 11-02-[address] Terry Laguna Work Phone: [facility] Work Phone: Start: 08-24-2022 End: 08-24-[address] Terry Laguna Work Phone: [facility] Start: 04-20-2022 End: 04-20-[address] Terry Laguna Work Phone: [facility] Work Phone: Start: 04-20-2022 End: 04-20-[address] Terry Laguna Work Phone: [facility]-Outpatient Breast Imaging Start: 03-16-2022 End: 03-16-[address] Terry Laguna Work Phone: [facility] Work Phone: Start: 03-16-2022 End: 03-16-[address] Terry Laguna Work Phone: [facility]-Radiology, [facility] Start: 03-11-2022 End: 03-11-[address] Terry Laguna Work Phone: [facility] Start: 02-17-2022 Non-patient / Non-visit Dr. Terry Laguna Work Phone: [facility] Start: 02-17-2022 End: 02-17-2022 Admission to same day surgery center Dr. Terry Laguna Work Phone: [facility]-Endoscopy Start: 01-05-2022 End: 01-05-[address] Terry Laguna Work Phone: [facility] Procedures Date Procedure Procedure Detail Performing Clinician Start: 08-01-2024 Dual energy X-ray absorptiometry Dr. Daria Laguna MD Work Phone: Start: 08-01-[address] Terry Laguna MD Work Phone: Start: 03-14-2023 Plain x-ray of hand Dr. Terry Laguna Work Phone: Start: 03-14-2023 Plain x-ray of pelvis and lower extremity Dr. Terry Laguna Work Phone: Start: 11-02-[address] Terry Laguna Work Phone: Start: 04-20-[address] Terry Laguna Work Phone: Start: 03-16-[address] Terry Laguna Work Phone: Start: 02-17-[address] Terry parra Work Phone: Plan of Treatment Date Care Activity Detail Author Start: 11-02-2022 Patient discharge [facility] Start: 02-17-2022 Egd insert guide wir e dilator passage esophagus EGD GUIDE WIRE INSERTION [facility] Work Phone: Start: 02-17-2022 Egd transoral biopsy single/multiple EGD BIOPSY SINGLE/MULTIPLE [facility] Work Phone: Start: 02-17-2022 Patient discharge [facility] Work Phone: Start: 01-05-2022 Patient referral [facility] Work Phone: Patient referral [facility] Work Phone: Payers Date Payer Category Payer Self-pay [id number] 2024 Medicare [id number] 2024 Unknown [id number] Unknown [id number] 2.16.8 [id number] Unknown [id number] 2.16.8 [id number] Unknown [id number] 2.16.8 [id number] Unknown [id number] 2.16.8 [id number] Unknown [id number] 2.16.8 [id number] Unknown [id number] 2.16.8 [id number] Social History Date Type Detail Facility Start: 02-15-2022 End: 11-23-2022 Tobacco smoking status NHIS Unknown if ever smoked [facility] Start: 1940 Sex Assigned At Female [facility] Start: 11-09-2023 Tobacco smoking stat us MDIS Never smoked tobacco (finding) [facility] Start: 10-14-2024 Sex Female (finding) [facility] Goals Date Patient Goal Desired Activity /State Mental Status Date Assessment Result Facility 11-02-2022 Cognitive function Level Of Consciousness Drowsy [facility] Work Phone: 11-02-2022 Cognitive function Voice/Name [facility] Work Phone: 02-17-2022 Cognitive function Voice/Name [facility] Work Phone: Procedure note 11-02-2022 Note Date & Type Note Facility 11-02-2022 Procedure note [facility] Procedure note 11-02-2022 Note Date & Type Note Facility 11-02-2022 Procedure note [facility] Evaluation note Note Date & Type Note Facility Evaluation note Diagnosis Onset Date Cerebellar ataxia acute Regurgitation of food acute [facility] Work Phone: Evaluation note Note Date & Type Note Facility Evaluation note Diagnosis Onset Date Cerebellar ataxia acute Regurgitation of food chroni c Regurgitation of food chroni c [facility] Work Phone: Evaluation note Note Date & Type Note Facility Evaluation note Diagnosis Onset Date Gastric reflux acute Personal history of colonic polyps acute Regurgitation of food chroni c [facility] Work Phone: Evaluation note Note Date & Type Note Facility Evaluation note Diagnosis Onset Date Gastric reflux acute Personal history of colonic polyps acute Cerebellar ataxia chronic Cough chronic Regurgitation of food chroni c [facility] Work Phone: Evaluation note Note Date & Type Note Facility Evaluation note No assessment information availa ble [facility] Work Phone: History and physical note Note Date & Type Note Facility History and physical note Note Date/Time November 02, 2022 9:04am [facility] Medical Records Department [address] [place] [address] History & Physical Exam 11/02/22 0903 MR#: [id number] Acct: [id number] Name: TERRENCE YANG Rep #:[id number] : 1940 82 From: Kobecyndi Galvan DO PCP: Dr. Terry Laguna MD Status:[facility] Location: [place] [address] History and Physical Date of Admission: 11/02/22 TERRENCE YANG, is a 82 F who presents to the office today for Follow up. H cerebellar ataxia, onset 1989. Colonoscopy 12.22.18 Dr. Carpenter noting 8mm sessile polyp; addition three polyps removed; diverticulosis; internal hemorrhoids. Two polyps were TA. *BGI established 7.6.22 with referral from PCP for postprandial regurgitation offood. No swallow studies or EGD and no difficulty of dysphagia. Reflux managed with domperidone 10mg QD. EGD 02.17.22?moderate Schatzki ring, Savary dilator 45F; Irregular Zline 40cm from incisors with inflammation, without metaplasia; medium hiatal hernia. OV 9.9.22 with continued regurgitation of food, particularly with increased abdominal pressure. No dysphagia. Barium Swallow 9.14.22?without abnormality. OV .. continued to have regurgitation of food with increased abdominal pressure, feels the food is not digested when it does come up. ROS Const Constitutional: No fatigue ENT ENT: Positive for difficulty swallowing Gastro GI: Positive for abdominal pain and difficulty swallowing; No belching, bloating, change in bowel habits, change in stool character, coffeeground emesis, constipation, cramping, diarrhea, heartburn, feeling full early, excessive flatus, incontinent of stools, Vomiting blood/hematemesis, Blood in stool, loose stools, Black,tarry stools, nausea/dyspepsia, pain with swallowing,vomiting or other Musc Musculoskeletal: Positive for abnormal gait, limited range of motion, muscle weakness and decreased muscle mass; No joint pain Skin Skin: No yellowing of the eye or itchy eyes Neuro Neurology: Positive for abnormal gait Psych Psychiatric: No anxiety and No depression Endo Endocrine: No fatigue Aller/Imm Allergy/Immunologic: No itchy eyes Kirk/Lymp Hematologic/Lymphatic: No easy bleeding or easy bruising Exam Const General: cooperative, comfortable and no acute distress Orientation: alert, awake and oriented x3 Other: In wheelchair, able to self propel Resp Effort & Inspection: normal respiratory effort GI Inspection: normal to inspection Palpation: tender Quality Reporting Tobacco Screening ([facility] 138) Smoking Status: Never smoker Assessment and Plan Assessment and Plan (1) Regurgitation of food: ?Status:?Chronic ?Plan: Chronic regurgitation of food secondary to known gastroparesis.? She also has a hiatal hernia.? She is taken domperidone 10 mg p.o. every 6 hours as needed.? I will give her a refill for the medicine. (2) Personal history of colonic polyps: ?Status:?Acute ?Plan: We will set up a surveillance colonoscopy for her.? She was explained alternatives, risk, benefits including outstanding bleeding, infection, sepsis, perforation, need for emergent surgery.? She will have an ASA 3. (3) Gastric reflux: ?Status:?Acute ?Plan: Gastroesophageal reflux disease is made worse secondary to underlying gastroparesis.? There was no signs of José's esophagus on her upper endoscopywhich is good.? She does not need PPI therapy on a daily basis.? We will give her H2 receptor monique. ? ? ? Orders: Orders Gastric Emptying Study Today R11.10 - Vomiting, unspecified ? (4) need for surveillance colonoscopy. She was explained alternatives, risk, benefits include not withstanding bleeding, infection, sepsis, perforation, needfor emergent and . She will have a colonoscopy and her ASA will be 3. Coding 11/02/22 0904 <Electronically signed by Kobe Galvan DO> Cosigner Signature (if applicable): CC: Dr. Terry Laguna MD; Kobe Galvan DO~ Signed [facility] Work Phone: Hospital Discharge instructions Note Date & Type Note Facility Hospital Discharge instructions [facility] Work Phone: Reason for referral (narrative) Note Date & Type Note Facility Reason for referral (narrative) No reason for referral information available [facility] Work Phone: Chief Complaint and Reason for Visit Chief Complaint Consult Reason for Visit Cerebellar ataxia Regurgitation of food Chief Complaint Consult 3 MO FU VOMITING Reason for Visit Cerebellar ataxia Regurgitation of food Regurgitation of food Chief Complaint Consult 3 MO FU VOMITING SCREENING Reason for Visit Cerebellar ataxia Regurgitation of food Regurgitation of food Chief Complaint FU Reason for Visit Gastric reflux Personal history of colonic polyps Regurgitation of food Chief Complaint 2WK FU Primary osteoarthritis, unspecified hand Reason for Visit Gastric reflux Personal history of colonic polyps Cerebellar ataxia Cough Regurgitation of food Chief Complaint Admit Date SCREENING OSTEO August 01, 2024 2 :28pm Family History No Family History Records Found Relationship Condition Age at Onset Recorded Date/T sylvain Not Specified High blood cholesterol Unknown Alcoholism Unknown Angina at rest Unknown Cardiac disease Unknown Myocardial infarction Unknown Hypertension Unknown Advance Directives No Advanced Directives Records Found Advance Directive Response Recorded Date/ Time Living Will No February 15 10:54am Power of Front Desk Attendant No February 15 022 10:54am Advance Directive Response Recorded Date/ Time Living Will No October 31, 2022 8: 48am Power of Front Desk Attendant No October 31, 2022 8:48am Summary Purpose Additional Source Comments Care Teams (unrecognized sec tion and content) Team Status: Active Member Role Status Dates Dr. Terry Laguna MD Primary Care Provider Active Team Status: Inactive Member Role Status Dates Dr. Terry Laguna MD Primary Care Provider, Referring Marjorie yousif Active Dr. Kobe Galvan DO Attending Provider Active Team Status: Active Member Role Status Dates Dr. Terry Laguna MD Primary Care Provider, Referring P rovider Active Dr. Kobe Galvan DO Attending Provider, Other Prov ider Active Team Status: Inactive Member Role Status Dates Dr. Terry Laguna MD Primary Care Provider, Attending P rovider Active Team Status: Inactive Member Role Status Dates Dr. Terry Laguna MD Primary Care Provider Active Start: August 01, 2024 End: August 01, 2024 Dr. Terry Laguna MD Attending Provider Active St art: August 01, 2024 End: August 01, 2024 Dr. Terry Laguna MD Referring Provider Active St art: August 01, 2024 End: August 01, 2024 Team Status: Inactive Member Role Status Dates Dr. Terry Laguna MD Primary Care Provider Active Start: October 09, 2024 End: October 09, 2024 Dr. Terry Laguna MD Attending Provider Active St art: October 09, 2024 End: October 09, 2024 Dr. Terry Laguna MD Referring Provider Active St art: October 09, 2024 End: October 09, 2024 Goals (unrecognized section and content) Goals may be documented in a n alternate sectionGoals may be documented in an alternate section INFORMATION SOURCE (unrecogn ized section and content) DATE CREATED AUTHOR 05/06/2025 [facility] FOR RECORDS PERTAINING TO PATIENTS WHO ARE OR HAVE BEEN ENROLLED IN A CHEMICAL DEPENDENCY/SUBSTANCEABUSE PROGRAM, SOME INFORMATION MAY BE OMITTED. This clinical summary was aggregated from multiple sources. Caution should be exercised in using it in the provision of clinical care. This summary normalizes information from multiple sources, and as a consequence, information in this document may materially change the coding, format and clinical context of patient data. In addition, data may be omitted in some cases. CLINICAL DECISIONS SHOULD BE BASED ON THE PRIMARY CLINICAL RECORDS. [employer] provides no warranty or guarantee of the accuracy or completeness of information in this document.
== END | disposition home or self-care (01) ==
LOC: MTLAB 11:42
PROVIDERS: PCP Family Medicine; Referring Provider Family Medicine; Visit Provider Family Medicine
DX: E78.00 Pure hypercholesterolemia, unspecified (principal); E55.9 Vitamin D deficiency, unspecified; I10 Essential (primary) hypertension
CPT/HCPCS: 36415; 80053; 80061; 82306; 85025